=== PATIENT | male | born 1955 | race Caucasian/White ===

== ENCOUNTER 2020-06-13 14:50 | Inpatient (IN) | payer MEDICAID, SELFPAY ==
[2020-06-13] VITALS (8 sets, daily range): BP systolic 120–161; BP diastolic 71–94; PULSE 53–90; RESP 16–20; TEMP 36.4–36.8; O2SAT 97–100; BMI 17.4
--- NOTE | 2020-06-13 15:54 | XR_ITS ---
WS: [id number] XR chest 1V portable [id number] REASON FOR EXAM: renal failure FINDINGS: Mild tortuosity of the thoracic aorta without aneurysmal dilatation. Normal heart size. Calcified granulomatous changes bilaterally. No active pulmonary parenchymal or pleural disease noted . Mild S-shaped thoracic scoliosis with mild changes of degenerative spondylosis in the mid and lower t horacic spine. XR/XR chest 1V portable [id number] IMPRESSION: No acute chest abnormality.
[2020-06-13 16:11] LABS: Basophils % 0.7 %; Eosinophils # 0.1 10^3/uL (0.0-0.8); Eosinophils % 1.5 %; Hematocrit 32.9 % (42.0-52.0); Hemoglobin 10.3 g/dL (11.7-16.6); Lymphocytes # 0.9 10^3/uL (0.8-4.8); Lymphocytes % 16.5 %; Mean Corpuscular HGB Conc 31.3 g/dL (30.0-36.0); Mean Corpuscular Hemoglobin 28.4 pg (28.0-34.0); Mean Corpuscular Volume 90.6 fL (80-94); Mean Platelet Volume 9.5 fL (7.4-10.4); Monocytes # 0.5 10^3/uL (0.2-0.9); Monocytes % 9.3 %; Neutrophils # 3.87 10^3/uL (1.8-7.7); Neutrophils % 71.6 %; Nucleated Red Blood Cells % 0 %; Platelet Count 242 10^3/cmm (130-400); Red Blood Count 3.63 10^6/uL (4.1-5.3); Red Cell Distribution Width 13.7 % (12.1-15.1); White Blood Count 5.4 10^3/uL (4.0-10.0)
--- NOTE | 2020-06-13 16:13 | W.ED.MALEGU ---
HPI - Male Genitourinary General: Chief complaint: Urogenital-Male Stated complaint: obstructive prostatic hypertrophy related issues Source: patient Mode of arrival: ambulatory Limitations: no limitations History of Present Illness: HPI Narrative: Patient is a 65-year-old male who presents to the emergency department after his primary care provider advised him to. He apparently has had a longstanding history of BPH but the patient has refused prostatectomy to have been advised and recommended by the urologist. He has also refused any medical management of the BPH. The patient now has to self catheterize because of the obstructive uropathy. He has hydronephrosis and has been having worsening renal function. A couple of days ago labs done showed his GFR of 11 and creatinine above 5. His primary care provider then advised that he comes for an emergent evaluation in the ED. Patient states that he has intermittent chest pain and shortness of breath. No vomiting, no diaphoresis, no fever. He has extensive social issues and lives alone, his house has no electricity, no running water and he has no telephone. He is having to self catheterize but because he cannot afford the catheter he is extending the time between catheterizations and does it about once a day. He has dribbling, difficulty initiating urine and incomplete bladder emptying. Associated symptoms: Deny dysuria, nausea or vomiting Review of Systems General: Reports: 10 or more systems reviewed and unremarkable except in HPI and below Const: Denies: fever(s), chills or body aches Eyes: Denies: change in vision or blurry vision ENMT: Denies: throat pain, enlarged tonsils, odynophagia, hoarseness, mouth pain or swelling of lips/tongue Card: Reports: chest pain; Denies: palpitations, irregular heart rhythm, edema or swelling of feet/ankles Resp: Denies: dyspnea, productive cough or non-productive cough GI: Denies: abdominal pain, nausea or vomiting : Reports: difficulty urinating, urinary hesitancy, urinary dribbling, difficulty starting urination and change in urine stream; Denies: flank pain, dysuria, urinary frequency or urinary urgency Musc: Denies: neck pain, back pain or extremity swelling Skin/Breast: Denies: rash, pruritus or erythema Neuro: Denies: headache(s), numbness in extremities or weakness in extremities Endo: Denies: polyuria, polydipsia or tired all the time PFSH ED PFSH: Medical History (Updated 06/13/20 @ 23:35 by Ignacia Santillan MD) BPH (benign prostatic hyperplasia) (~2000) long standing, declines consideration for alpha blockers or surgery, does self cath when has supplies CKD (chronic kidney disease) stage 4, GFR 15-29 ml/min 2020 GFR 19 History of pneumonia younger years, recurrent, none in years Social isolation lives off grid, 28 years, on own since around 16, no running water, no electricity, no phone, has a car and a dog Urolithiasis History of bladder and right renal stones Surgical History (Updated 06/13/20 @ 22:00 by Ignacia Santillan MD) History of lithotripsy (~01/2015) large bladder stone, [facility] Status post tendon repair (~1996) both hands Family History (Updated 06/13/20 @ 22:30 by Ignacia Santillan MD) Father Alcoholism Social History (Updated 06/13/20 @ 23:33 by Ignacia Santillan MD) Smoking and tobacco status: never smoked Second hand smoke exposure: Yes Alcohol intake: never Substance/Drug Use: former Date of last use: remote THC Lives independently: Yes Household members: other Details: dog Housing: Other Details: no running water, electricity, phone, lives off grid 28+ years Financial difficulty paying for basics: Hard Physical Exam Const: COMMON NORMALS: no acute distress, average body habitus, patient oriented x3, no limitations, healthy appearing, alert and well nourished HENMT: COMMON NORMALS: normocephalic, atraumatic and moist oral mucous membranes HEAD & SCALP: normocephalic and atraumatic Eye: COMMON NORMALS: Equal, round and reactive pupils present, EOMs intact bilaterally, conjunctivae normal and no scleral icterus CONJUNCTIVA: Yes conjunctivae normal PUPIL: Yes Equal, round and reactive pupils present Neck/C-Spine: COMMON NORMALS: no meningeal signs and no JVD Resp: COMMON NORMALS: normal respiratory effort, No retractions, No use of accessory muscles, clear to auscultation bilaterally and percussion normal AUSCULTATION: clear to auscultation bilaterally PERCUSSION: percussion normal Cardio: COMMON NORMALS: no JVD, regular rate, regular rhythm, S1 normal heart sound present, S2 normal heart sound present, No gallops present (Cardio), No clicks present (Cardio), No murmurs present (Cardio), No rub (Cardio) and Peripheral pulses 2+ throughout RATE: regular rate RHYTHM: regular rhythm HEART SOUNDS: S1 normal heart sound present and S2 normal heart sound present PERIPHERAL PULSES: Peripheral pulses 2+ throughout GI: COMMON NORMALS: Normal to inspection, nondistended, normoactive bowel sounds present, Soft to palpation, non-tender, No hepatosplenomegaly present, no masses and no bruits PALPATION: Yes Soft to palpation and Yes No hepatosplenomegaly present Extremity: COMMON NORMALS: normal to inspection, full ROM, capillary refill normal, no calf tenderness and no pedal edema Neuro: COMMON NORMALS: patient oriented x3 SENSORIUM/ORIENTATION: Yes alert MENINGEAL SIGNS: Yes no meningeal signs Skin: COMMON NORMALS: no rashes or lesions noted, no wounds, turgor normal, no jaundice, no petechiae and no mottling GENERAL SKIN EXAM: no rashes or lesions noted and turgor normal Course Consultations: Consultation #1: Discussed the patient with Dr. Guzman, urologist. He will see the patient while he is admitted. Time: 18:22 Consultation #2: Discussed the patient with Dr. George, hospitalist and he kindly accepted the patient to his service. Time: 18:33 Vital Signs: Vital signs: Vital Signs Temperature 98.2 F 06/13/20 15:01 Pulse Rate 71 06/13/20 23:22 Respiratory Rate 16 06/13/20 23:22 Blood Pressure 124/71 06/13/20 23:22 Pulse Oximetry 97 06/13/20 23:22 MDM - Male MDM Narrative: Medical decision making narrative: This unfortunate 65-year-old male who has had longstanding prostatic issues. He has benign prostatic hypertrophy and unfortunately has refused medical management or surgical management of his symptoms. He has baptism believes that I am conflict with his healthcare management. He has declined prostatectomy as he believes it to make him impotent and has also declined medical therapy as he believes it will make him less of a man. He has obstructive uropathy which has progressed to renal failure and he has a creatinine of 5 today. BUN of 90. Thankfully his potassium is normal. Urine shows he has a UTI. I had discussed with the urologist and he will evaluate him in the hospital. A Cain catheter was inserted to relieve the obstructive uropathy and hopefully that will improve his renal function rapidly. I spent an extensive amount of time discussing the pathophysiology of how BPH has led to his renal failure and how it is important that something be done to relieve his symptoms otherwise his outcome is going to be pretty poor. He will be admitted to the hospital for evaluation and management. Medical Records: Attestation: I reviewed the patient's medical records. Lab Data: Attestation: I reviewed the patient's lab results. Labs: Lab Results 06/13/20 06/13/20 06/13/20 Range/Units 16:00 16:00 16:00 WBC 5.4 (4.0-10.0) 10^3/ uL RBC 3.63 L (4.1-5.3) 10^6/u L Hgb 10.3 L (11.7-16.6) g/dL Hct 32.9 L (42.0-52.0) % MCV 90.6 (80-94) fL MCH 28.4 (28.0-34.0) pg MCHC 31.3 (30.0-36.0) g/dL RDW 13.7 (12.1-15.1) % Plt Count 242 (130-400) 10^3/c mm MPV 9.5 (7.4-10.4) fL Neut % (Auto) 71.6 % Lymph % (Auto) 16.5 % [place] % (Auto) 9.3 % Eos % (Auto) 1.5 % Baso % (Auto) 0.7 % Neut # (Auto) 3.87 (1.8-7.7) 10^3/u L Lymph # (Auto) 0.9 (0.8-4.8) 10^3/u L [place] # (Auto) 0.5 (0.2-0.9) 10^3/u L Eos # (Auto) 0.1 (0.0-0.8) 10^3/u L Baso # (Auto) 0.0 (0.0-0.1) 10^3/u L Nucleated RBC % (a uto) 0 % Nucleated RBCs # 0.0 /100WBC Sodium 138 (136-145) mmol/L Potassium 3.7 (3.5-5.1) mmol/L Chloride 104 (98-107) mmol/L Carbon Dioxide 19 L (22-29) mmol/L Anion Gap 18.7 (5-19) BUN 90 H* (8-23) mg/dL Creatinine 5.1 H (0.7-1.2) mg/dL GFR Calculation 11.5 L (90-130) mL/min Glucose 80 (65-115) mg/dL Calculated Osmolal ity 313 H (285-295) mOsm/k g Lactate 0.7 (0.5-2.2) mmol/L Calcium 7.3 L (8.5-10.5) mg/dL Magnesium 2.1 (1.7-2.3) mg/dL Total Bilirubin 0.2 (0.15-1.2) mg/dL AST 14 (0-40) U/L ALT 24 (0-41) U/L Alkaline Phosphata se 60 (40-130) IU/L Troponin T Baselin e (0-15) ng/L Troponin T 120 Min chuck (0-15) ng/L Delta Troponin T (0-10) ABS# C-Reactive Protein 2.7 (0.0-4.9) mg/L NT-Pro-B Natriuret Pep 410 H (0-125) pg/mL Total Protein 7.9 (6.6-8.7) g/dL Albumin 4.2 (3.5-5.2) g/dL Globulin 3.7 (1.3-4.6) g/dL Urine Color (Yellow) Urine Appearance (CLEAR) Urine pH (5-7) Ur Specific Gravit y (1.005-1.030) Urine Protein (Negative) Urine Glucose (UA) (Normal) Urine Ketones (Negative) Urine Blood (Negative) Urine Nitrate (Negative) Urine Bilirubin (Negative) Urine Urobilinogen (Negative) mg/dL Ur Leukocyte Sheridan ase (Negative) Urine RBC (0-2) /hpf Urine WBC (0-5) /hpf Ur Squamous Epith Cells (0-5) /hpf Amorphous Sediment Urine Bacteria (NONE) /hpf Hyaline Casts /lpf 06/13/20 06/13/20 06/13/20 Range/Units 16:00 16:45 18:20 WBC (4.0-10.0) 10^3/ uL RBC (4.1-5.3) 10^6/u L Hgb (11.7-16.6) g/dL Hct (42.0-52.0) % MCV (80-94) fL MCH (28.0-34.0) pg MCHC (30.0-36.0) g/dL RDW (12.1-15.1) % Plt Count (130-400) 10^3/c mm MPV (7.4-10.4) fL Neut % (Auto) % Lymph % (Auto) % [place] % (Auto) % Eos % (Auto) % Baso % (Auto) % Neut # (Auto) (1.8-7.7) 10^3/u L Lymph # (Auto) (0.8-4.8) 10^3/u L [place] # (Auto) (0.2-0.9) 10^3/u L Eos # (Auto) (0.0-0.8) 10^3/u L Baso # (Auto) (0.0-0.1) 10^3/u L Nucleated RBC % (a uto) % Nucleated RBCs # /100WBC Sodium (136-145) mmol/L Potassium (3.5-5.1) mmol/L Chloride (98-107) mmol/L Carbon Dioxide (22-29) mmol/L Anion Gap (5-19) BUN (8-23) mg/dL Creatinine (0.7-1.2) mg/dL GFR Calculation (90-130) mL/min Glucose (65-115) mg/dL Calculated Osmolal ity (285-295) mOsm/k g Lactate (0.5-2.2) mmol/L Calcium (8.5-10.5) mg/dL Magnesium (1.7-2.3) mg/dL Total Bilirubin (0.15-1.2) mg/dL AST (0-40) U/L ALT (0-41) U/L Alkaline Phosphata se (40-130) IU/L Troponin T Baselin e 23 H (0-15) ng/L Troponin T 120 Min chuck 21.74 H (0-15) ng/L Delta Troponin T -1.26 L (0-10) ABS# C-Reactive Protein (0.0-4.9) mg/L NT-Pro-B Natriuret Pep (0-125) pg/mL Total Protein (6.6-8.7) g/dL Albumin (3.5-5.2) g/dL Globulin (1.3-4.6) g/dL Urine Color Yellow (Yellow) Urine Appearance Hazy A (CLEAR) Urine pH 5 (5-7) Ur Specific Gravit y 1.010 (1.005-1.030) Urine Protein Neg (Negative) Urine Glucose (UA) Norm (Normal) Urine Ketones Negative (Negative) Urine Blood 2+ H (Negative) Urine Nitrate Negative (Negative) Urine Bilirubin Neg (Negative) Urine Urobilinogen Norm (Negative) mg/dL Ur Leukocyte Sheridan ase 2+ H (Negative) Urine RBC 5-10 H (0-2) /hpf Urine WBC >100 H (0-5) /hpf Ur Squamous Epith Cells 0-4 H (0-5) /hpf Amorphous Sediment Not Reportable Urine Bacteria 1+ H (NONE) /hpf Hyaline Casts 5-10 H /lpf Imaging Data: CT Abd/Pel: Attestation: I personally reviewed and interpreted this imaging study as follows: Radiologist's impression: [place] [address] CT Scan Report Signed Patient: Stephen Cole #: [id number] : 7Acct#:[id number] Age/Sex: 65 / MADM Date: 06/13/20 [facility] Attending Dr: Ordering Provider/Ordering MD: Shad Pelletier MD, [facility] [place] Date of Service: 06/13/20 Procedure(s): CT abdomen pelvis wo con [id number] Accession Number(s): [id number] Report Number: [id number] PROCEDURE INFORMATION: Exam: CT Abdomen And Pelvis Without Contrast Exam date and time: 06/13/2020 5:09 PM Age: 65 years old Clinical indication: Abdominal pain; Flank; Right; Prior surgery; Surgery type: Bladder stone; Additional info: Obstructive uropathy and renal failure TECHNIQUE: Imaging protocol: Computed tomography of the abdomen and pelvis without contrast. Radiation optimization: All CT scans at this facility use at least one of these dose optimization techniques: automated exposure control; mA and/or kV adjustment per patient size (includes targeted exams where dose is matched to clinical indication); or iterative reconstruction. COMPARISON: No relevant prior studies available. RADIATION DOSE METRICS: Total DLP (mGy-cm): 540.7 FINDINGS: Liver: Small simple cyst in the subcapsular area of the right lateral hepatic lobe. Simple cyst in the superior left hepatic dome. Gallbladder and bile ducts: Normal. No calcified stones. No ductal dilation. Pancreas: Normal. No ductal dilation. Spleen: Normal. No splenomegaly. Adrenal glands: Normal. No mass. Kidneys and ureters: Renal parenchyma severely atrophic bilaterally. Numerous calcified nonobstructing right-sided kidney stones. There is very severe chronic appearing diffuse bilateral hydroureteronephrosis. Stomach and bowel: Unremarkable. No obstruction. No mucosal thickening. Appendix: No evidence of appendicitis. Intraperitoneal space: Unremarkable. No free air. No significant fluid collection. Vasculature: Diffuse arterial wall atherosclerotic calcifications. No abdominal aortic aneurysm. Lymph nodes: Unremarkable. No enlarged lymph nodes. Urinary bladder: Diffusely trabeculated, thickened bladder wall. Large right posterior bladder wall diverticulum with bladder calculus. Reproductive: Diffuse prostate gland hypertrophy. Bones/joints: Severe disc disease at L4-L5 and L5-S1. No aggressive bone lesions. Lumbar spinal alignment is anatomic. No pathologic fractures. Soft tissues: Unremarkable. CT/CT abdomen pelvis wo con [id number] IMPRESSION: 1. Chronic bladder outlet obstruction changes are noted with a diffusely trabeculated bladder wall and severe bilateral hydroureteronephrosis. 2. Prostate gland hypertrophy. 3. Right-sided renal stones and small bladder stone within bladder diverticula. Radiation Dose CTDIVOL = (mGy): DLP = 540.7 (mGy-cm) Dictated By:Satish Post Signed By:Lakhwinder Post Date/Time:06/13/201738 DD/ 37 CXR: Attestation: I personally reviewed and interpreted this imaging study as follows: Radiologist's impression: [email or web address] [address] XRay Report Signed Patient: Kristopher ColeCarley #: [id number] : 7[facility]#:[id number] Age/Sex: 65 / MADM Date: 06/13/20 Loc: ERRoom/Bed: Attending Dr: Ordering Provider/Ordering MD: Shad Pelletier MD, [facility] [place] Date of Service: 06/13/20 Procedure(s): XR chest 1V portable [id number] Accession Number(s): [id number] Report Number: [id number] WS: [id number] XR chest 1V portable [id number] REASON FOR EXAM: renal failure FINDINGS: Mild tortuosity of the thoracic aorta without aneurysmal dilatation. Normal heart size. Calcified granulomatous changes bilaterally. No active pulmonary parenchymal or pleural disease noted. Mild S-shaped thoracic scoliosis with mild changes of degenerative spondylosis in the mid and lower thoracic spine. XR/XR chest 1V portable [id number] IMPRESSION: No acute chest abnormality. Dictated By:Kahlil Magaña Jr, MD Signed By:Kahlil Magaña Jr MDSigned Date/Time:06/13/201638 DD/ 37 EKG Data: EKG 1: Attestation: I personally reviewed and interpreted this EKG as follows: EKG Data: 06/13/20 EKG interpretation time: 16:00 Prior EKG tracings: not available for review Interpretation: Sinus bradycardia. Heart rate 55 bpm. Normal axis. No ST changes. EKG 2: Attestation: I personally reviewed and interpreted this EKG as follows: EKG Data: 06/13/20 EKG interpretation time: 18:04 Prior EKG tracings: available for review Interpretation: Sinus bradycardia. Heart rate [address] changes. No significant changes from earlier. Discharge Plan Discharge Patient Disposition: Admitted As Inpatient Admit Provider: Donta Minaya Clinical Impression: Acute renal failure, Bilateral hydronephrosis, Bladder outlet obstruction, UTI (urinary tract infection), Social isolation, BPH (benign prostatic hyperplasia) Condition: Stable Coding Level of Care Code ED Organ Tuner Electronic for Chg Fwd Exam Comprehensive
[2020-06-13 16:22] LABS: Lactate (Lactic Acid level) 0.7 mmol/L (0.5-2.2)
[2020-06-13 16:26] LABS: Troponin(5th) Baseline 23 ng/L (0-15)
[2020-06-13 16:33] LABS: Alanine Aminotransferase 24 U/L (0-41); Albumin Level 4.2 g/dL (3.5-5.2); Alkaline Phosphatase 60 IU/L (40-130); Anion Gap 18.7 (5-19); Aspartate Amino Transferase 14 U/L (0-40); C Reactive Protein 2.7 mg/L (0.0-4.9); Calcium 7.3 mg/dL (8.5-10.5); Carbon Dioxide 19 mmol/L (22-29); Chloride 104 mmol/L (98-107); Globulin 3.7 g/dL (1.3-4.6); Glomerular Filtration Rate 11.5 mL/min (90-130); Glucose 80 mg/dL (65-115); Magnesium 2.1 mg/dL (1.7-2.3); NT Pro B Type Natriuretic Pept 410 pg/mL (0-125); Osmolality Calculated 313 mOsm/kg (285-295); Potassium 3.7 mmol/L (3.5-5.1); Sodium 138 mmol/L (136-145); Total Bilirubin 0.2 mg/dL (0.15-1.2); Total Protein 7.9 g/dL (6.6-8.7)
[2020-06-13 16:42] LABS: Blood Urea Nitrogen 90 mg/dL (8-23)
--- NOTE | 2020-06-13 17:02 | CTR_ITS ---
PROCEDURE INFORMATION: Exam: CT Abdomen And Pelvis Without Contrast Exam date and time: 06/13/2020 5:09 PM Age: 65 years old Clinical indication: Abdominal pain; Flank; Right; Prior surgery; Surgery type: Bladder stone; Additional info: Obstructive uropathy and renal failure TECHNIQUE: Imaging protocol: Computed tomography of the abdomen and pelvis without contrast. Radiation optimization: All CT scans at this facility use at least one of these dose optimization techniques: automated exposure control; mA and/or kV adjustment per patient size (includes targeted exams where dose is matched to clinical indication); or iterative reconstruction. COMPARISON: No relevant prior studies available. RADIATION DOSE METRICS: Total DLP (mGy-cm): 540.7 FINDINGS: Liver: Small simple cyst in the subcapsular area of the right lateral hepatic lobe. Simple cyst in the superior left hepatic dome. Gallbladder and bile ducts: Normal. No calcified stones. No ductal dilation. Pancreas: Normal. No ductal dilation. Spleen: Normal. No splenomegaly. Adrenal glands: Normal. No mass. Kidneys and ureters: Renal parenchyma severely atrophic bilaterally. Numerous calcified nonobstructing right-sided kidney stones. There is very severe chronic appearing diffuse bilateral hydroureteronephrosis. Stomach and bowel: Unremarkable. No obstruction. No mucosal thickening. Appendix: No evidence of appendicitis. Intraperitoneal space: Unremarkable. No free air. No significant fluid collection. Vasculature: Diffuse arterial wall atherosclerotic calcifications. No abdominal aortic aneurysm. Lymph nodes: Unremarkable. No enlarged lymph nodes. Urinary bladder: Diffusely trabeculated, thickened bladder wall. Large right posterior bladder wall diverticulum with bladder calculus. Reproductive: Diffuse prostate gland hypertrophy. Bones/joints: Severe disc disease at L4-L5 and L5-S1. No aggressive bone lesions. Lumbar spinal alignment is anatomic. No pathologic fractures. Soft tissues: Unremarkable. CT/CT abdomen pelvis wo con [id number] IMPRESSION: 1. Chronic bladder outlet obstruction changes are noted with a diffusely trabeculated bladder wall and severe bilateral hydroureteronephrosis. 2. Prostate gland hypertrophy. 3. Right-sided renal stones and small bladder stone within bladder diverticula. Radiation Dose CTDIVOL = (mGy): DLP = 540.7 (mGy-cm)
[2020-06-13 17:10] LABS: Add Urine Microscopic? YES; Bilirubin Urine Neg (Negative); Blood Urine 2+ (Negative); Glucose Urine UA Norm (Normal); Ketones Urine Negative (Negative); Leukocyte Esterase Urine 2+ (Negative); Nitrate Urine Negative (Negative); Protein Urine Neg (Negative); Urine Appearance Hazy (CLEAR); Urine Color Yellow (Yellow); Urobilinogen Urine Norm (Negative); pH Urine 5 (5-7)
[2020-06-13 17:25] LABS: Add Urine Culture? Yes; Bacteria Urine 1+ /hpf; Squamous Epithelial Cell Urine 0-4 /hpf (0-5); WBC Urine >100 /hpf (0-5)
[2020-06-13] MEDS: sodium chloride 0.9% 1,000 ML 999 ML IV (17:28)
--- NOTE | 2020-06-13 17:55 | ECG_ITS ---
[facility] Test Date: 2020-06-13 Pat Name: Kristopher Cole Department: Room: Gender: Male [employer] Work[employer]: : 1955 Requested By: Shad Pelletier I Order Number: [id number] David MD: Ruth Mcleod M.D. Measurements Intervals [place] Rate: 55 P: 82 CA: 169 QRS: 94 QRSD: 126 T: 71 QT: 465 QTc: 447 Interpretive Statements SINUS BRADYCARDIA BORDERLINE RIGHT AXIS DEVIATION [QRS AXIS > 90] MODERATE INTRAVENTRICULAR CONDUCTION DELAY [110+ ms QRS DURATION] Compared to ECG 06/13/2020 16:00:03 Intraventricular conduction delay now present Electronically Signed On 06-14-2020 23:22:37 CDT by Ruth Mcleod M.D. [id number]
[2020-06-13] MEDS: cefTRIAXone 1,000 MG in sodium chloride 0.9% (plus) 50 ML 100 MG IV (18:42)
[2020-06-13 19:18] LABS: Troponin 5 2HR 21.74 ng/L (0-15)
[2020-06-13 19:19] LABS: Troponin 5 2HR Delta -1.26 ABS# (0-10)
--- NOTE | 2020-06-13 21:18 | PM.HP ---
Providers/Chief Complaint Admitting Physician: Jacque Primary Care Provider: Estrella Matos [facility] Chief Complaint: obstructive prostatic hypertrophy related issues History of Present Illness Kristopher Cole is a 65 year old male who presented to the emergency room with chief complaint of kidney failure. He had recent laboratory studies done at [facility]. Results showed creatinine of 5 with a GFR of 11. Mr. Cole [place] off [facility] and has for around 30 years or so. He has no running water, electricity or telephone. He recently bought a vehicle with a stimulus check which allowed him to get to the clinic for lab studies. Last time he had labs was about a year ago and at that time he reports that his kidney function was around 19. I suspect that he is referring to calculated GFR. Staff from the clinic where he had the lab drawn is weak drove out to his house and provided him with results of the studies and instructions to get to the emergency room due to the degree of worsening in his kidney disease. He has a longstanding history of prostatic hypertrophy. It was first diagnosed back in 2000. He has been offered alpha blockers to help but has longstanding and nonnegotiable concerns about alpha edwin ability to influence hormonal balance and masculinity. He has been doing self catheterizations for management for years but has had more more difficulty obtaining supplies. He currently only uses a catheter every few days at most so that he does not run out. He still makes urine but knows that he is not able to empty his bladder. About the minimum he ever gets with self-catheterization is around 300 cc and at times it will be significantly greater. He has been having increasing suprapubic pain as well as right flank pain. He has a history of kidney stones and bladder stones. Back in 2014 he was hospitalized at [facility] in [place] with a 2.5 cm bladder stone that was broken up and removed . He does not know what kind of stone it was. At the time he had significant renal failure with hyperkalemia but with intervention improved though has had some degree of chronic kidney disease since then. He only periodically follows to get blood work done and get supplies for catheterization. When he saw his primary care provider recently, they gave him a prescription for Cipro for urinary tract infection. He has not yet started it. Denies any recent hematuria. Has not had fever. Has not been feeling well but no nausea, vomiting or diarrhea. On arrival here he had some mild hypertension which he reports has been progressively worsening. Has not ever been on any medications for this. Creatinine was found to be 5.1 with BUN of 90. Potassium was 3.7. He does describe intermittent episodes of chest discomfort. No shortness of breath. He maintains activity by taking care of his ADLs in an off grade lifestyle. He does have a dog who is his constant assistant to the director. Hwang catheter was placed in the emergency room and more than a liter of urine output was noted. Urinalysis demonstrated evidence of infection. He was given some Rocephin, IV fluids and is being admitted for further evaluation and treatment. He is utilizing something called the [employer] program through his primary care provider's office to assist him with getting medications and supplies for catheterization but reports that the cost is still more than he can routinely afford. He is 100% against any surgical options for his prostatic hypertrophy. He has tried saw palmetto but did not tolerate it. He reports that he got some nettle root for his prostate but has not utilized it yet. He is willing to consider natural alternatives. He does not want any form of medication that might alter hormones. He specifically does not want any alpha blockers. He has well thought out viewpoints that differ from mainstream but has also done some research on the topics. He lives his life by relying on God's provisions and the land. He realizes that he does need some intervention for his renal function. He appropriately prefers to make well-informed decisions before trying anything new. I did talk to him about the possibility of iron replacement which he was okay with and I also discussed the possibility of antihypertensives. His long as alpha blockers are not chosen and medications or not hormonal based he is okay with this. With adequate information provided he will consider care plans offered thoughtfully to determine if they fall within his lifestyle preferences. Review of Systems Const: Denies: fever(s), chills or change in appetite Eyes: Denies: change in vision ENMT: Denies: throat pain or nasal congestion Card: Reports: chest pain; Denies: palpitations, edema, dyspnea on exertion or orthopnea Resp: Denies: dyspnea, productive cough or non-productive cough GI: Denies: abdominal pain, nausea, vomiting, diarrhea or constipation : Reports: flank pain, difficulty urinating, difficulty starting urination and change in urine stream (Progressively worsening ability to empty bladder); Denies: hematuria Musc: Reports: other (No acute musculoskeletal complaints) Skin/Breast: Denies: pruritus or sores Neuro: Denies: other (Focal neurological complaints) Psych: Reports: other (No hallucinations) [place]/Lymph: Denies: easy bruising or easy bleeding Medications/Allergies Home Medications Medication Instructions Recorded Confirmed Last Taken Type ciprofloxacin HCl [Cipro] 500 mg PO Q12H 06/13/20 06/13/20 Unknown History Allergies Allergy/AdvReac Type Severity Reaction Status Date / Time Latex, Natural Rubber Allergy Intermediate ALGY-Rash Verified 06/13/20 15:37 codeine Allergy ALGY-Rash Verified 06/13/20 15:37 PFSH Acute PFSH: Medical History (Updated 06/14/20 @ 08:28 by Ignacia Santillan MD) BPH (benign prostatic hyperplasia) (~2000) long standing, declines consideration for alpha blockers or surgery, does self cath when has supplies CKD (chronic kidney disease) stage 4, GFR 15-29 ml/min 2020 GFR 19 History of pneumonia younger years, recurrent, none in years Social isolation lives [place] grid, 28 years, on own since around 16, no running water, no electricity, no phone, has a car and a dog Urolithiasis History of bladder and right renal stones Surgical History (Updated 06/13/20 @ 22:00 by Ignacia Santillan MD) History of lithotripsy (~01/2015) large bladder stone, [facility] Status post tendon repair (~1996) both hands Family History (Updated 06/13/20 @ 22:30 by Ignacia Santillan MD) Father Alcoholism Social History (Updated 06/13/20 @ 23:33 by Ignacia Santillan MD) Smoking and tobacco status: never smoked Second hand smoke exposure: Yes Alcohol intake: never Substance/Drug Use: former Date of last use: remote THC Lives independently: Yes Household members: other Details: dog Housing: Other Details: no running water, electricity, phone, lives off grid 28+ years Financial difficulty paying for basics: Hard Vitals/I&O/Wt Last Vital Signs Temp 98.2 F 06/13/20 15:01 Pulse 59 L 06/13/20 17:50 Resp 18 06/13/20 18:00 BP 149/93 06/13/20 17:50 Pulse Ox 100 06/13/20 17:50 06/13/20 06/13/20 06/13/20 06:59 14:59 22:59 Intake Total 1000 / 1000 Balance 1000 / 1000 Weight last 48 hrs Weight 55.338 kg Physical Exam Const: OTHER: Alert, oriented x3, cooperative, thin build HENMT: OTHER: Normocephalic atraumatic, moist mucus membranes, posterior dental fillings Eye: OTHER: Pupils equally round and reactive to light, EOMI Neck/C-Spine: OTHER: Supple, no thyromegaly or lymphadenopathy Resp: OTHER: Clear to auscultation bilaterally, no rales, rhonchi or wheezes noted, no accessory muscle use noted Cardio: OTHER: Regular rate and rhythm, no murmurs gallops or rubs. Pulses equal throughout GI: OTHER: Abdomen soft, mild tenderness suprapubic area and right flank, no rebound or guarding, + bowel sounds : OTHER: normal circumsized phallus, hwang noted, ~1100 ml clear yellow urine Extremity: OTHER: No cyanosis, clubbing or edema, no acute synovitis Neuro: OTHER: Face symmetric, speech clear, moves all extremities Psych: OTHER: Normal affect, enjoys talking but not pressured speech, thought process appropriate despite differing views from medical community certain things, makes good eye contact and acknowledges my need to attend to 2 emergencies during my evaluation well, well kempt, good recall of long ago events, able to get detailed history and demonstrates good insight, even able to recall labs from last year. Skin: OTHER: Skin without any acute lesions or rashes noted Data : 06/14/20 06:01 06/14/20 06:01 Other Labs: Laboratory Results WBC 5.4 10^3/uL (4.0-10.0) 06/13/20 16:00 RBC 3.63 10^6/uL (4.1-5.3) L 06/13/20 16:00 Hgb 10.3 g/dL (11.7-16.6) L 06/13/20 16:00 Hct 32.9 % (42.0-52.0) L 06/13/20 16:00 MCV 90.6 fL (80-94) 06/13/20 16:00 MCH 28.4 pg (28.0-34.0) 06/13/20 16:00 MCHC 31.3 g/dL (30.0-36.0) 06/13/20 16:00 RDW 13.7 % (12.1-15.1) 06/13/20 16:00 Plt Count 242 10^3/cmm (130-400) 06/13/20 16:00 MPV 9.5 fL (7.4-10.4) 06/13/20 16:00 Neut % (Auto) 71.6 % 06/13/20 16:00 Lymph % (Auto) 16.5 % 06/13/20 16:00 [place] % (Auto) 9.3 % 06/13/20 16:00 Eos % (Auto) 1.5 % 06/13/20 16:00 Baso % (Auto) 0.7 % 06/13/20 16:00 Neut # (Auto) 3.87 10^3/uL (1.8-7.7) 06/13/20 16:00 Lymph # (Auto) 0.9 10^3/uL (0.8-4.8) 06/13/20 16:00 [place] # (Auto) 0.5 10^3/uL (0.2-0.9) 06/13/20 16:00 Eos # (Auto) 0.1 10^3/uL (0.0-0.8) 06/13/20 16:00 Baso # (Auto) 0.0 10^3/uL (0.0-0.1) 06/13/20 16:00 Nucleated RBC % (auto) 0 % 06/13/20 16:00 Nucleated RBCs # 0.0 /100WBC 06/13/20 16:00 Sodium 138 mmol/L (136-145) 06/13/20 16:00 Potassium 3.7 mmol/L (3.5-5.1) 06/13/20 16:00 Chloride 104 mmol/L (98-107) 06/13/20 16:00 Carbon Dioxide 19 mmol/L (22-29) L 06/13/20 16:00 Anion Gap 18.7 (5-19) 06/13/20 16:00 BUN 90 mg/dL (8-23) H* 06/13/20 16:00 Creatinine 5.1 mg/dL (0.7-1.2) H 03/18/21 16:00 GFR Calculation 11.5 mL/min (90-130) L 06/13/20 16:00 Glucose 80 mg/dL (65-115) 06/13/20 16:00 Calculated Osmolality 313 mOsm/kg (285-295) H 06/13/20 16:00 Lactate 0.7 mmol/L (0.5-2.2) 06/13/20 16:00 Calcium 7.3 mg/dL (8.5-10.5) L 06/13/20 16:00 Magnesium 2.1 mg/dL (1.7-2.3) 06/13/20 16:00 Total Bilirubin 0.2 mg/dL (0.15-1.2) 06/13/20 16:00 AST 14 U/L (0-40) 06/13/20 16:00 ALT 24 U/L (0-41) 06/13/20 16:00 Alkaline Phosphatase 60 IU/L (40-130) 06/13/20 16:00 Troponin T Baseline 23 ng/L (0-15) H 06/13/20 16:00 Troponin T 120 Minute 21.74 ng/L (0-15) H 06/13/20 18:20 Delta Troponin T -1.26 ABS# (0-10) L 06/13/20 18:20 C-Reactive Protein 2.7 mg/L (0.0-4.9) 06/13/20 16:00 NT-Pro-B Natriuret Pep 410 pg/mL (0-125) H 06/13/20 16:00 Total Protein 7.9 g/dL (6.6-8.7) 06/13/20 16:00 Albumin 4.2 g/dL (3.5-5.2) 06/13/20 16:00 Globulin 3.7 g/dL (1.3-4.6) 06/13/20 16:00 Urine Color Yellow (Yellow) 06/13/20 16:45 Urine Appearance Hazy (CLEAR) A 06/13/20 16:45 Urine pH 5 (5-7) 06/13/20 16:45 Ur Specific [place] 1.010 (1.005-1.030) 06/13/20 16:45 Urine Protein Neg (Negative) 06/13/20 16:45 Urine Glucose (UA) Norm (Normal) 06/13/20 16:45 Urine Ketones Negative (Negative) 06/13/20 16:45 Urine Blood 2+ (Negative) H 06/13/20 16:45 Urine Nitrate Negative (Negative) 06/13/20 16:45 Urine Bilirubin Neg (Negative) 06/13/20 16:45 Urine Urobilinogen Norm mg/dL (Negative) 06/13/20 16:45 Ur Leukocyte Esterase 2+ (Negative) H 06/13/20 16:45 Urine RBC 5-10 /hpf (0-2) H 06/13/20 16:45 Urine WBC >100 /hpf (0-5) H 06/13/20 16:45 Ur Squamous Epith Cells 0-4 /hpf (0-5) H 06/13/20 16:45 Amorphous Sediment Not Reportable 06/13/20 16:45 Urine Bacteria 1+ /hpf (NONE) H 06/13/20 16:45 Hyaline Casts 5-10 /lpf H 06/13/20 16:45 Impressions Chest X-Ray 06/13/20 15:54 IMPRESSION: No acute chest abnormality. Abdomen/Pelvis CT 06/13/20 17:02 IMPRESSION: 1. Chronic bladder outlet obstruction changes are noted with a diffusely trabeculated bladder wall and severe bilateral hydroureteronephrosis. 2. Prostate gland hypertrophy. 3. Right-sided renal stones and small bladder stone within bladder diverticula. Radiation Dose CTDIVOL = (mGy): DLP = 540.7 (mGy-cm) A&P Assessment and plan (1) Acute renal failure: On top of chronic kidney disease stage IV by his description. Postobstructive process made worse by irregular utilization of self-catheterization. Potassium is normal suggesting that this is probably been a slow decline in renal function. Patient still able to urinate but only about 300 mL maximum at a time, reports most post void residual 300 to 400 mL though today was greater than 1000. He has been having right flank pain and was concerned that he had an obstructive stone either in his kidney or bladder. Status: Acute Qualifiers: Acute renal failure type: with other specified pathological lesion Qualified Code(s): N17.8 - Other acute kidney failure (2) UTI (urinary tract infection): Present on admission Status: Acute Qualifiers: Hematuria presence: without hematuria Urinary tract infection type: acute cystitis Qualified Code(s): N30.00 - Acute cystitis without hematuria (3) Bladder outlet obstruction: Chronically related to BPH Status: Acute (4) Bilateral hydronephrosis: No prior comparative films but he indicates what I suspect is having some hydronephrosis in the past Status: Acute (5) Urolithiasis: Right renal and bladder, currently nonobstructive Status: Chronic Qualifiers: Urinary calculus location: other lower urinary tract location Qualified Code(s): N21.8 - Other lower urinary tract calculus (6) BPH (benign prostatic hyperplasia): long standing, declines consideration for alpha blockers or surgery, does self cath when has supplies Status: Chronic Qualifiers: Lower urinary tract symptom detail: urinary obstruction Lower urinary tract symptom presence: symptoms present Qualified Code(s): N40.1 - Benign prostatic hyperplasia with lower urinary tract symptoms; N13.8 - Other obstructive and reflux uropathy (7) Anemia: Suspect anemia of chronic kidney disease, no reported blood loss Status: Acute Qualifiers: Anemia type: unspecified type Qualified Code(s): D64.9 - Anemia, unspecified (8) Hypertension: I suspect that this is been developing slowly over time due to progressive renal dysfunction, patient has noticed it himself Status: Acute Qualifiers: Hypertension type: secondary to other renal disorders Qualified Code(s): I15.1 - Hypertension secondary to other renal disorders; N28.89 - Other specified disorders of kidney and ureter (9) Financial difficulties: Affording medical supplies routinely Status: Chronic (10) Social isolation: lives off [facility], 28 years, on own since around 16, no running water, no electricity, no phone, has a car and a dog Status: Chronic Additional A&P Information Impatient admission Continue Hwang catheter IV fluids at a lower rate Monitor renal function as well as I's and O's closely Watch for postobstructive diuresis Serial cardiac enzymes and EKGs secondary to complaints of some chest pain Check iron level, start iron replacement which he has agreed to Start amlodipine for blood pressure control, discussed concept of antihypertensives with patient and as long as he is not receiving an alpha-edwin he is okay presently ED doctor discussed with Dr. Guzman who agreed to see the patient in consultation. While options are generally going to be limited to self-catheterization based on patient's healthcare preferences, having access to a provider who can educate him and work within the restrictions he has outlined will benefit him. He is aware of progressive kidney problems secondary to prostate issues and aware that progressive kidney problems could lead to hemodialysis need or other healthcare that may not be in line with his desires. He is well versed in his life approach, willing to listen/discuss recommendations as well as some alternatives and also understands that not intervening can lead to significant consequences up to and including the possibility of . Marian, follow-up pending cultures from urine He does have a prescription for Cipro upon discharge already filled will need to be adjusted for renal dysfunction as it was prescribed at 500 twice daily, depending on where his renal function recovers to may be able to do 500 daily. SCDs for DVT prophylaxis donor services coordinator/Case management to evaluate and see if there is any assistance we can arrange for him particularly around getting self-catheterization supplies plus or minus insurance options. Anticipate follow-up with his primary care provider Estrella Mondragons at [facility], possibly with Dr. Guzman and possibly with referral to nephrology Supportive care otherwise Plans were discussed with patient and he was given an opportunity to ask questions CODE STATUS was discussed with patient he does wish to be full code except if there was no chance of meaningful survival he would not want continued efforts. Attestations Medical Necessity Statement*: Anticipated stay greater than 2 midnights in a gentleman with suboptimally managed bladder outlet obstruction from prostatic hypertrophy who has developed progressive renal failure. While his electrolytes are currently acceptable he has significant azotemia and currently calculated GFR consistent with stage V kidney disease. In addition he has urine infection related to obstructive process. He is receiving IV fluids, serial laboratory studies, close monitoring of urine output as well as IV antibiotics. Other issues and plans as noted. Coding Level of Care Code Acute Academic Success Coordinator for [employer]oco Fwd Diagnoses Acute renal failure N17.8 Acute renal failure type: with other specified pathological lesion UTI (urinary tract infection) N30.00 Hematuria presence: without hematuria Urinary tract infection type: acute cystitis Bladder outlet obstruction N32.0 Bilateral hydronephrosis N13.30 Urolithiasis N21.8 Urinary calculus location: other lower urinary tract location BPH (benign prostatic hyperplasia) N40.1; N13.8 Lower urinary tract symptom detail: urinary obstruction Lower urinary tract symptom presence: symptoms present Anemia D64.9 Anemia type: unspecified type Hypertension I15.1; N28.89 Hypertension type: secondary to other renal disorders Financial difficulties Z59.8 Social isolation Z60.4
--- NOTE | 2020-06-13 21:55 | ECG_ITS ---
[facility] Test Date: 2020-06-13 Pat Name: Kristopher Cole Department: Room: Gender: Male Campaign Advisor: : [id number] Requested By: Shad Pelletier I Order Number: [id number] David MD: Ruth Mcleod M.D. Measurements Intervals [place] Rate: 55 P: 66 IA: 149 QRS: 90 QRSD: 103 T: 76 QT: 430 QTc: 413 Interpretive Statements SINUS BRADYCARDIA Diffuse early repolarization changes No previous ECG available for comparison Electronically Signed On 06-14-2020 23:22:21 CDT by Ruth Mcleod M.D. [id number]
[2020-06-13 22:20] LABS: Troponin 5 6HR 21.23 ng/L (0-15)
[2020-06-13 22:21] LABS: Troponin 5 6HR Delta -1.77 ng/L (0-12)
[2020-06-14 01:28] VITALS: BP 132/68; PULSE 54; RESP 18; TEMP 37; O2SAT 100
[2020-06-14] MEDS: sodium chloride 0.9% 1,000 ML 75 ML IV ×2 (03:47→17:09)
[2020-06-14 05:24] VITALS: BP 144/76; PULSE 56; RESP 18; TEMP 36.6; O2SAT 97
[2020-06-14 06:37] LABS: Basophils % 0.5 %; Eosinophils # 0.1 10^3/uL (0.0-0.8); Eosinophils % 2.5 %; Hematocrit 29.2 % (42.0-52.0); Lymphocytes # 0.8 10^3/uL (0.8-4.8); Lymphocytes % 13.9 %; Mean Corpuscular HGB Conc 30.8 g/dL (30.0-36.0); Mean Corpuscular Hemoglobin 28.4 pg (28.0-34.0); Mean Corpuscular Volume 92.1 fL (80-94); Mean Platelet Volume 9.8 fL (7.4-10.4); Monocytes # 0.5 10^3/uL (0.2-0.9); Monocytes % 9.3 %; Neutrophils # 4.16 10^3/uL (1.8-7.7); Neutrophils % 73.4 %; Nucleated Red Blood Cells % 0 %; Platelet Count 208 10^3/cmm (130-400); Red Blood Count 3.17 10^6/uL (4.1-5.3); Red Cell Distribution Width 13.7 % (12.1-15.1); White Blood Count 5.7 10^3/uL (4.0-10.0)
[2020-06-14 06:50] VITALS: BP 121/79; PULSE 54; RESP 16; TEMP 36.7; O2SAT 100
[2020-06-14 06:52] LABS: Calcium 7.2 mg/dL (8.5-10.5); Carbon Dioxide 19 mmol/L (22-29); Chloride 110 mmol/L (98-107); Glomerular Filtration Rate 12.6 mL/min (90-130); Glucose 89 mg/dL (65-115); Magnesium 1.8 mg/dL (1.7-2.3); Osmolality Calculated 320 mOsm/kg (285-295); Phosphorus 5.9 mg/dL (2.5-4.5); Sodium 142 mmol/L (136-145)
[2020-06-14 07:18] LABS: Iron 45 ug/dL (59-158); Percent Saturation 21.8 % (20-50); Total Iron Binding Capacity 206 mcg/dl; Unsaturated Iron Binding 161 ug/dL (112-347); Uric Acid 5.3 mg/dL (3.4-7.0)
[2020-06-14 07:34] LABS: Blood Urea Nitrogen 88 mg/dL (8-23)
[2020-06-14] MEDS: amlodipine 5 mg Tablet PO (08:49)
[2020-06-14 10:33] VITALS: BP 118/74; PULSE 63; RESP 17; TEMP 36.6; O2SAT 100
--- NOTE | 2020-06-14 13:24 | PC.CHAP ---
Pastoral Care Encounter/Spiritual Assessment Type of Contact [] Declined boat fueler visit [] Patient/Family/Request visit [] Outpatient visit [] Follow-up visit [] Physician referral [] Code/Alert [xx] Routine visit [] Staff referral [] Actively dying [] Patient sleeping [] Family support [] [] Out of room [] Palliative care [] [] Receiving care in room [] Pre-surgical visit [] Trauma [] Long length of stay [] ICU visit [] Other: Relational/Emotional Strength [xx] Patient feels connected with others/family/visitors/staff [] Distress [] Loneliness/isolation [] Abandonment Spirituality of Patient [xx] Person of [place] [xx] Attends Orthodoxy of their [place] [xx] Believes in Prayer [xx] Reads Bible or Scientologist materials [] There are Spiritual issues to be addressed Hotel Maintenance Worker Interventions [] Prayer [] Active listening [] Non-anxious presence [] Spiritual/emotional support [] Crisis/trauma care [] Spiritual counseling [] Bereavement support [] Provided bereavement packet [] Provided Bible/devotional materials [] Provided toy/stuffed animal, coloring book to patient or family member [] Provided Communion [] Anointing/[place] [] Salvation [xx] Completed spiritual assessment [] Other: Impact on Illness or Injury [] Angry [] Fearful [] Anxious [] Often cries [] Exhaustion [] Unable to work [] Unable to attend sabianist [] Unable to walk/stand [] Unable to read [] Unable to drive [] Unable to eat/drink [] Unable to sleep [] Unable to be with family [] Patient intubated [] Other: Summary Patient very loquacious and a delight to visit. [facility] [place] [facility] [place]. He has been there several years with no modern conveniences such as electricity or phone. He lives off the land. Patient loves God and has served Him since age 21. Patient believes God has many plans for his life and this medical problem is just a trial and setback in accomplishing God's plans for his life. He is believing for a physical miracle. Time spent with patient 30 minutes
[2020-06-14 16:00] VITALS: BP 111/67; PULSE 66; RESP 17; TEMP 36.6; O2SAT 98
--- NOTE | 2020-06-14 16:03 | PM.PN ---
Subjective Subjective: Interval history: Overnight labs and H&P reviewed. Creatinine at 4.7 from 5.1 yesterday. Urine output 700 cc Medications: Reviewed: Yes Vitals/I&O/Wt Last Vital Signs Temp 97.9 F 06/14/20 10:33 Pulse 63 06/14/20 10:33 Resp 17 06/14/20 10:33 BP 118/74 06/14/20 10:33 Pulse Ox 100 06/14/20 10:33 06/14/20 06/14/20 06/14/20 06:59 14:59 22:59 Intake Total 420 / 420 Output Total 250 / 250 725 / 725 Balance -250 / 750 -305 / -305 Weight last 48 hrs Weight 55.338 kg Physical Exam Urinary Catheter Management^: Latex Free: Cath Placed During This Visit: yes Reason for Continuing Indwelling Catheter: Acute Urinary Retention or Obstruction Urinary Catheter Date of Insertion: 06/13/20 Urinary Catheter Time of Insertion: 22:20 Data : 06/14/20 06:01 06/14/20 06:01 A&P Assessment and plan (1) Acute renal failure: On top of chronic kidney disease stage IV by his description. Postobstructive process made worse by irregular utilization of self-catheterization. Potassium is normal suggesting that this is probably been a slow decline in renal function. Patient still able to urinate but only about 300 mL maximum at a time, reports most post void residual 300 to 400 mL though today was greater than 1000. He has been having right flank pain and was concerned that he had an obstructive stone either in his kidney or bladder. Status: Acute Qualifiers: Acute renal failure type: with other specified pathological lesion Qualified Code(s): N17.8 - Other acute kidney failure (2) UTI (urinary tract infection): Present on admission Status: Acute Qualifiers: Hematuria presence: without hematuria Urinary tract infection type: acute cystitis Qualified Code(s): N30.00 - Acute cystitis without hematuria (3) Bladder outlet obstruction: Chronically related to BPH Status: Acute (4) Bilateral hydronephrosis: No prior comparative films but he indicates what I suspect is having some hydronephrosis in the past Status: Acute (5) Urolithiasis: Right renal and bladder, currently nonobstructive Status: Chronic Qualifiers: Urinary calculus location: other lower urinary tract location Qualified Code(s): N21.8 - Other lower urinary tract calculus (6) BPH (benign prostatic hyperplasia): long standing, declines consideration for alpha blockers or surgery, does self cath when has supplies Status: Chronic Qualifiers: Lower urinary tract symptom detail: urinary obstruction Lower urinary tract symptom presence: symptoms present Qualified Code(s): N40.1 - Benign prostatic hyperplasia with lower urinary tract symptoms; N13.8 - Other obstructive and reflux uropathy (7) Anemia: Suspect anemia of chronic kidney disease, no reported blood loss Status: Acute Qualifiers: Anemia type: unspecified type Qualified Code(s): D64.9 - Anemia, unspecified (8) Hypertension: I suspect that this is been developing slowly over time due to progressive renal dysfunction, patient has noticed it himself Status: Acute Qualifiers: Hypertension type: secondary to other renal disorders Qualified Code(s): I15.1 - Hypertension secondary to other renal disorders; N28.89 - Other specified disorders of kidney and ureter (9) Financial difficulties: Affording medical supplies routinely Status: Chronic (10) Social isolation: lives off [facility], 28 years, on own since around 16, no running water, no electricity, no phone, has a car and a dog Status: Chronic Additional A&P Information Continue Cain catheter Continue OVF @ 75 cc/hr Monitor renal function as well as I's and O's closely Serial cardiac enzymes and EKGs negative for AMI. Continue iron supplementation for anemia Continue amlodipine for blood pressure control Empric Rocephin, follow-up pending cultures from urine administrative services assistant/Case management to evaluate and see if there is any assistance we can arrange for him particularly around getting self-catheterization supplies plus or minus insurance options. Anticipate follow-up with his primary care provider Estrella Villalta at [facility], possibly with Dr. Guzman and possibly with referral to nephrology if renal function continues to decline or poor urine output CODE STATUS was discussed with patient he does wish to be full code except if there was no chance of meaningful survival he would not want continued efforts. Attestations Medical Necessity Statement*: close monitoring of renal function, urine output Coding Level of Care Code Acute Bilingual Secretary for [facility] Fwd Diagnoses Acute renal failure N17.8 Acute renal failure type: with other specified pathological lesion UTI (urinary tract infection) N30.00 Hematuria presence: without hematuria Urinary tract infection type: acute cystitis Bladder outlet obstruction N32.0 Bilateral hydronephrosis N13.30 Urolithiasis N21.8 Urinary calculus location: other lower urinary tract location BPH (benign prostatic hyperplasia) N40.1; N13.8 Lower urinary tract symptom detail: urinary obstruction Lower urinary tract symptom presence: symptoms present Anemia D64.9 Anemia type: unspecified type Hypertension I15.1; N28.89 Hypertension type: secondary to other renal disorders Financial difficulties Z59.8 Social isolation Z60.4
--- NOTE | 2020-06-14 17:01 | PM.CONSULT ---
Providers/Reason For Consult Consulting Physican/Specialty*: Urology/Guzman Reason for Consult*: Chronic bladder outlet obstruction Attending Physician: Leanne Hamm MD Primary Care Provider: Estrella Matos History of Present Illness History of Present Illness Kristopher Cole is a 65 year old male who I evaluated for the first time today at the request of hospitalist service. Longstanding history of bladder obstruction with multiple evaluations previously in [place] and in [facility] by urology including 1 cystolitholapaxy. He has refused medical therapy for prostate cancer. Typical pharmacologic agents including alpha blockers and 5 alpha reductase inhibition. Over time he has had chronic urinary retention with severe bladder distention probably to the point of complete bladder decompensation. At 1 point he had 3+ liters in his bladder. He lives a very unconventional lifestyle out in the [facility] with no electricity or running water. At one point he did have alternative energy sources including solar but eventually with declining income he was not able to maintain any of those amenities. At some point he was placed on intermittent self-catheterization and was told he had to use a sterile catheter every time. That was quite a financial burden to him. He has procured catheters in the past but began to use them much less frequently due to the cost. Eventually this led to his hospitalization here where he was found to be in severe renal failure with a creatinine of 5+. CT scan showed bilateral hydronephrosis with chronic parenchymal thinning, severely distended bladder with chronic trabeculation and cellule formation, and large prostate. Cain catheter was placed. His creatinine has decreased somewhat. I spent about an hour interviewing the patient and talking with him about his status. He was encouraged to hear that he did not have to have a sterile catheter every time but he did note that in the past when he used catheters over and over he would have increased risk of getting UTIs. We discussed options for managing that both holistically and conventionally. We also compared the risk of UTI with the risk of poorly managing his bladder and progression of renal failure to end-stage renal disease and requirement for dialysis etc. It made sense to him tube may be compromised on catheter status in order to maintain functioning kidneys. Current recommendations: 1. Maintain Cain catheter for least 2 weeks. Can be discharged with both leg and night bags 2. Consult social welfare administrator to see if he is eligible for assistance. He recently lost his food stamps apparently due to to a accounting error. He reports that last year he survived on approximately $450 for the whole year. 3. Follow-up in my office in approximately 2 weeks for voiding trial and discussions related to better bladder management possibly cystoscopy. We will complete urologic evaluation at that visit. 4. I reviewed with him that I will be out of town for the next week. 5. Encouraged him to think creatively to help solve his day-to-day problems with management of his bladder. Review of Systems Const: Denies: fever(s) or chills Eyes: Denies: change in vision Card: Denies: chest pain or palpitations Resp: Denies: dyspnea or productive cough GI: Reports: abdominal pain and bloating : Reports: difficulty urinating, urinary dribbling and hematuria Musc: Denies: joint pain or joint stiffness Neuro: Denies: behavioral changes, Slurred speech present or seizure-like activity Psych: Denies: anxiety or depression [place]/Lymph: Denies: easy bleeding All/Imm: Denies: urticaria or acute wheezing Meds/Allergies Home Medications and Allergies Home Medications Medication Instructions Recorded Confirmed Last Taken Type ciprofloxacin HCl [Cipro] 500 mg PO Q12H 06/13/20 06/13/20 Unknown History Allergies Allergy/AdvReac Type Severity Reaction Status Date / Time Latex, Natural Rubber Allergy Intermediate ALGY-Rash Verified 06/13/20 15:37 codeine Allergy ALGY-Rash Verified 06/13/20 15:37 Current Medications Current Medications Generic Name Dose Route Start Last Admin Trade Name Freq PRN Reason Stop Dose Admin Amlodipine Besylate 5 mg 06/14/20 09:00 06/14/20 08:49 Amlodipine 5 Mg Tablet PO 5 mg DAILY LUI Administration Sodium Chloride 1,000 mls @ 75 mls/hr 06/13/20 23:36 06/14/20 03:47 Sodium Chloride 0.9% IV 75 mls/hr .[id number] LUI Administration PFSH Acute PFSH: Medical History BPH (benign prostatic hyperplasia) (~2000) long standing, declines consideration for alpha blockers or surgery, does self cath when has supplies CKD (chronic kidney disease) stage 4, GFR 15-29 ml/min 2020 GFR 19 History of pneumonia younger years, recurrent, none in years Social isolation [place], [place] years, on own since around 16, no running water, no electricity, no phone, has a car and a dog Urolithiasis History of bladder and right renal stones Surgical History History of lithotripsy (~01/2015) large bladder stone, Romi Mcclelland Status post tendon repair (~1996) both hands Family History Father Alcoholism Social History Smoking and tobacco status: never smoked Second hand smoke exposure: Yes Alcohol intake: never Substance/Drug Use: former Date of last use: remote THC Lives independently: Yes Household members: other Details: dog Housing: Other Details: no running water, electricity, phone, lives [place] grid 28+ years Financial difficulty paying for basics: Hard Vitals/I&O/Wt Last Vital Signs Temp 97.9 F 06/14/20 10:33 Pulse 63 06/14/20 10:33 Resp 17 06/14/20 10:33 BP 118/74 06/14/20 10:33 Pulse Ox 100 06/14/20 10:33 06/14/20 06/14/20 06/14/20 06:59 14:59 22:59 Intake Total 420 / 420 Output Total 250 / 250 725 / 725 Balance -250 / 750 -305 / -305 Weight last 48 hrs Weight 122 lb Physical Exam Narrative: EXAM NARRATIVE: General: Alert oriented no acute distress Respiratory: No audible wheezing. No labored respiration good air movement Neck: nl ROM Urinary Catheter Management^: Latex Free: Cath Placed During This Visit: yes Reason for Continuing Indwelling Catheter: Acute Urinary Retention or Obstruction Urinary Catheter Date of Insertion: 06/13/20 Urinary Catheter Time of Insertion: 22:20 A&P Assessment and plan (1) Bladder outlet obstruction: Recommend maintaining Cain catheter for least 2 weeks then reinstitute S CIC 4-6 times per day keeping total bladder volumes low. Status: Acute (2) Bilateral hydronephrosis: Status: Acute (3) UTI (urinary tract infection): Status: Acute Qualifiers: Urinary tract infection type: acute cystitis Hematuria presence: without hematuria Qualified Code(s): N30.00 - Acute cystitis without hematuria (4) Financial difficulties: Consult social welfare administrator Status: Chronic Consult Attestations Medical Necessity Statement: See attending Coding Level of Care Code Acute License And Permit Specialist for [facility] Fwd Diagnoses Bladder outlet obstruction N32.0 Bilateral hydronephrosis N13.30 UTI (urinary tract infection) N30.00 Urinary tract infection type: acute cystitis Hematuria presence: without hematuria Financial difficulties Z59.8
[2020-06-14 19:18] VITALS: BP 106/62; PULSE 69; RESP 18; TEMP 36.8; O2SAT 98
--- NOTE | 2020-06-14 19:25 | PC.NURSE ---
Report to Alix/Estrella Irizarry LPN at this time.
[2020-06-14] MEDS: cefTRIAXone 1,000 MG in sodium chloride 0.9% (plus) 50 ML 100 MG IV (21:59)
[2020-06-14] MEDS: ferrous sulfate EC 325 mg Tablet PO (21:59)
[2020-06-15] VITALS (7 sets, daily range): BP systolic 109–155; BP diastolic 67–76; PULSE 59–80; RESP 16–18; TEMP 36.6–37.2; O2SAT 97–98
[2020-06-15] MEDS: sodium chloride 0.9% 1,000 ML 75 ML IV (06:12)
[2020-06-15 07:11] LABS: Anion Gap 18.2 (5-19); Calcium 6.9 mg/dL (8.5-10.5); Carbon Dioxide 18 mmol/L (22-29); Chloride 110 mmol/L (98-107); Glomerular Filtration Rate 13.6 mL/min (90-130); Glucose 101 mg/dL (65-115); Osmolality Calculated 321 mOsm/kg (285-295); Potassium 4.2 mmol/L (3.5-5.1); Sodium 142 mmol/L (136-145)
[2020-06-15 07:27] LABS: Blood Urea Nitrogen 87 mg/dL (8-23)
[2020-06-15] MEDS: ferrous sulfate EC 325 mg Tablet PO ×2 (08:28→20:19)
[2020-06-15] MEDS: amlodipine 5 mg Tablet PO (08:28)
[2020-06-15] MEDS: phenazopyridine 100 mg Tablet PO (15:10)
--- NOTE | 2020-06-15 16:18 | PC.NURSE ---
Patient states. I have chest pain that goes into my left arm pit. I have had it before and usually goes away. Vitals signs taken 98.7 Temp 67, HR, 123/76 blood pressure, 97% oxygen. Patient rates the pain a 2/10 Telemetry box placed on patient. Normal Sinus Rhythm at 63.
--- NOTE | 2020-06-15 16:49 | PC.NURSE ---
In room to check on patient. Patient states, The chest pain is gone I think it was just the way I was sitting. Patient rates pain a 0/10.
--- NOTE | 2020-06-15 17:48 | P.PN_ITS ---
Subjective Subjective: Interval history: Patient seen sitting up in bed eating dinner. He says he just awoke from a nap. His only concern is that of the blood clots in his catheter. He says he does not usually have that at home. He normally self caths his report to me is that he uses a new catheter each time however I saw documentation otherwise. Vitals/I&O/Wt Last Vital Signs Temp 98.2 F 06/15/20 16:00 Pulse 67 06/15/20 16:00 Resp 17 06/15/20 16:00 BP 123/76 06/15/20 16:00 Pulse Ox 97 06/15/20 16:00 06/15/20 06/15/20 06/15/20 06:59 14:59 22:59 Intake Total 978.75 / 2588.75 720 / 720 832.5 / 1552.5 Output Total 2200 / 2925 1800 / 1800 Balance -1221.25 / -336.25 720 / 720 -967.5 / -247.5 Physical Exam Narrative: EXAM NARRATIVE: General patient appears his stated age of 65. He is in no acute distress.THin Heart: Regular rate and rhythm normal S1-S2 without murmurs clicks gallops or rubs Lungs: Clear to auscultation no wheezes rales or rhonchi auscultated. Abdomen flat soft nontender nondistended normal active bowel sounds. Extremities: No clubbing cyanosis or edema. Urinary Catheter Management^: Latex Free: Cath Placed During This Visit: yes Reason for Continuing Indwelling Catheter: Chronic Indwelling Urinary Catheter on Admission Urinary Catheter Date of Insertion: 06/13/20 Urinary Catheter Time of Insertion: 22:20 Data : 06/14/20 06:01 06/15/20 06:20 Micro: Microbiology 06/13/20 16:45 Urine Culture - Preliminary Urine,Clean Catch A&P Assessment and plan (1) Social isolation: Status: Chronic (2) Acute renal failure: improving with hwang and fluids. Increase fluids to 150 ml/hr Status: Acute Qualifiers: Acute renal failure type: with other specified pathological lesion Qualified Code(s): N17.8 - Other acute kidney failure (3) Bilateral hydronephrosis: as above Status: Acute (4) Bladder outlet obstruction: as above. to maintain hwang after discharge and follow up with Dr. Brown Status: Acute (5) BPH (benign prostatic hyperplasia): declines treatment. Will readdress tomorrow. Give him a break from repetition of recommendations Status: Chronic Qualifiers: Lower urinary tract symptom presence: symptoms present Lower urinary tract symptom detail: urinary obstruction Qualified Code(s): N40.1 - Benign prostatic hyperplasia with lower urinary tract symptoms; N13.8 - Other obst ructive and reflux uropathy Attestations Medical Necessity Statement*: acute renal failure requiring fluid resusitation Coding Level of Care Code Acute Manager Medical Device for [facility] Fwd Diagnoses Social isolation Z60.4 Acute renal failure N17.8 Acute renal failure type: with other specified pathological lesion Bilateral hydronephrosis N13.30 Bladder outlet obstruction N32.0 BPH (benign prostatic hyperplasia) N40.1; N13.8 Lower urinary tract symptom presence: symptoms present Lower urinary tract symptom detail: urinary obstruction
--- NOTE | 2020-06-15 19:50 | PC.NURSE ---
Report to Mahnaz TRUJILLO AT THIS TIME.
[2020-06-15] MEDS: cefTRIAXone 1,000 MG in sodium chloride 0.9% (plus) 50 ML 100 MG IV (20:18)
[2020-06-15] MEDS: sodium chloride 0.9% 1,000 ML 150 ML IV (20:18)
[2020-06-16] VITALS (8 sets, daily range): BP systolic 113–138; BP diastolic 69–78; PULSE 61–90; RESP 17–20; TEMP 36.4–37; O2SAT 95–99
[2020-06-16] MEDS: phenazopyridine 100 mg Tablet PO ×2 (03:29→22:56)
[2020-06-16] MEDS: sodium chloride 0.9% 1,000 ML 150 ML IV ×4 (03:30→22:56)
[2020-06-16 07:39] LABS: Anion Gap 17.7 (5-19); Blood Urea Nitrogen 79 mg/dL (8-23); Calcium 6.4 mg/dL (8.5-10.5); Carbon Dioxide 15 mmol/L (22-29); Chloride 114 mmol/L (98-107); Glomerular Filtration Rate 15.6 mL/min (90-130); Glucose 93 mg/dL (65-115); Osmolality Calculated 319 mOsm/kg (285-295); Potassium 3.7 mmol/L (3.5-5.1); Sodium 143 mmol/L (136-145)
[2020-06-16] MEDS: ferrous sulfate EC 325 mg Tablet PO ×2 (09:15→17:44)
[2020-06-16] MEDS: amlodipine 5 mg Tablet PO (09:16)
--- NOTE | 2020-06-16 18:36 | PM.PN ---
Subjective Subjective: Interval history: Reports blood clots improved and may now be resolved. Believes he has prostitis. was given cipro the day he was admitted. Wishes to have this started. Pain immediately superpubic and in the past it was prostate related. Medications: Reviewed: Yes Vitals/I&O/Wt Last Vital Signs Temp 98.1 F 06/16/20 15:03 Pulse 90 06/16/20 15:03 Resp 17 06/16/20 15:03 BP 113/70 06/16/20 15:03 Pulse Ox 97 06/16/20 15:03 06/16/20 06/16/20 06/16/20 06:59 14:59 22:59 Intake Total 1000 / 3130.0 2045 / 2045 1000 / 3045 Output Total 1300 / 4500 1950 / 1950 1625 / 3575 Balance -300 / -1370.0 95 / 95 -625 / -530 Physical Exam Narrative: EXAM NARRATIVE: General patient appears his stated age of 65. He is in no acute distress.THin Heart: Regular rate and rhythm normal S1-S2 without murmurs clicks gallops or rubs Lungs: Clear to auscultation no wheezes rales or rhonchi auscultated. Abdomen flat soft mildly sustainable agriculture faculty superpubic. nondistended normal active bowel sounds. Extremities: No clubbing cyanosis or edema. Urinary Catheter Management^: Latex Free: Cath Placed During This Visit: yes Reason for Continuing Indwelling Catheter: Other Urinary Catheter Date of Insertion: 06/13/20 Urinary Catheter Time of Insertion: 22:20 Data : 06/14/20 06:01 06/16/20 06:34 Micro: Microbiology 06/13/20 16:45 Urine Culture - Final Urine,Clean Catch A&P Assessment and plan (1) Social isolation: Status: Chronic (2) Acute renal failure: improving with hwang and fluids. maintain fluids at 150 ml/hr until tomorrow. Then consider a decrease. Anticipate sCr of 3.4 tomorrow. Home in next 1-2 days. Status: Acute Qualifiers: Acute renal failure type: with other specified pathological lesion Qualified Code(s): N17.8 - Other acute kidney failure (3) Bilateral hydronephrosis: as above Status: Acute (4) Bladder outlet obstruction: to maintain hwang after discharge and follow up with Dr. Brown Status: Acute (5) BPH (benign prostatic hyperplasia): declines treatment with surgery or medications. He likely will need suprapubic catheter. Status: Chronic Qualifiers: Lower urinary tract symptom presence: symptoms present Lower urinary tract symptom detail: urinary obstruction Qualified Code(s): N40.1 - Benign prostatic hyperplasia with lower urinary tract symptoms; N13.8 - Other obstructive and reflux uropathy Additional A&P Information ? prostatitis - start cipro. pharmacy to order for crcl<30. CODE STATUS was discussed with patient he does wish to be full code except if there was no chance of meaningful survival he would not want continued efforts. Attestations Medical Necessity Statement*: continuous fluids and close monitoring for renal failure and new treatments. anticipate 1-2 days before discharge Coding Level of Care Code Acute Cafeteria Monitor for [facility] Fwd Diagnoses Social isolation Z60.4 Acute renal failure N17.8 Acute renal failure type: with other specified pathological lesion Bilateral hydronephrosis N13.30 Bladder outlet obstruction N32.0 BPH (benign prostatic hyperplasia) N40.1; N13.8 Lower urinary tract symptom presence: symptoms present Lower urinary tract symptom detail: urinary obstruction
[2020-06-16] MEDS: ciprofloxacin 500 mg Tablet PO (19:35)
[2020-06-17] VITALS (7 sets, daily range): BP systolic 117–136; BP diastolic 65–75; PULSE 64–75; RESP 17–22; TEMP 36.6–37.7; O2SAT 95–98
[2020-06-17] MEDS: sodium chloride 0.9% 1,000 ML 150 ML IV ×2 (04:59→11:23)
[2020-06-17] MEDS: phenazopyridine 100 mg Tablet PO ×3 (08:41→23:16)
[2020-06-17] MEDS: ferrous sulfate EC 325 mg Tablet PO ×2 (08:41→17:36)
[2020-06-17] MEDS: amlodipine 5 mg Tablet PO (08:41)
--- NOTE | 2020-06-17 13:15 | P.PN_ITS ---
Subjective Subjective: Interval history: Creatinine improving to 3.9 today, urine output at 7 L, no hematuria. Overnight T-max recorded at 99.8 Fahrenheit. Medications: Reviewed: Yes Vitals/I&O/Wt Last Vital Signs Temp 98.2 F 06/17/20 11:09 Pulse 75 06/17/20 11:09 Resp 18 06/17/20 11:09 BP 127/73 06/17/20 11:09 Pulse Ox 95 06/17/20 11:09 06/16/20 06/17/20 06/17/20 22:59 06:59 14:59 Intake Total 2480 / 4525 1027.5 / 5552.5 1560 / 1560 Output Total 2825 / 4775 1900 / 6675 2300 / 2300 Balance -345 / -250 -872.5 / -1122.5 -740 / -740 Physical Exam Narrative: EXAM NARRATIVE: GEN: Awake, alert and oriented, no acute distress CVS: S1S2 N RS: CTA B/L Abd: Soft, nt/nd , bs+ DIRECTOR FINANCIAL PLANNING: no focal neuro deficits Cain in place, no hematuria, clear kevin-colored urine. Urinary Catheter Management^: Latex Free: Cath Placed During This Visit: yes Reason for Continuing Indwelling Catheter: Acute Urinary Retention or Obstruction Urinary Catheter Date of Insertion: 06/13/20 Urinary Catheter Time of Insertion: 22:20 Data : 06/14/20 06:01 06/16/20 06:34 Micro: Microbiology 06/13/20 16:45 Urine Culture - Preliminary Urine,Clean Catch Staphylococcus sp coag neg Staphylococcus sp coag neg#2 A&P Assessment and plan (1) Acute renal failure: On top of chronic kidney disease stage IV by his description. Postobstructive process made worse by irregular utilization of self- catheterization. Per patient description, he was diagnosed also to have post obstructive acute renal failure in 2014 which required admission at [facility]. Creatinine at that time was also in the 5 range per patient description. Dialysis was briefly considered but eventually deferred as kidney function improved. Cr has been trended with PCP Estrella Matos [phone], called today to obtain trend to get baseline cr numbers. 07/2018 cr 2.5, 04/2019 3.5, 06/2019 3.3, 05/2020 5.5. Patient hopeful that cr would trend down to 2.9, however I have explained to him extensively today that based on this chronic decline in baseline of between 3.3-3.5, it may not be realistic to target 2.9 and creatinine is unlikely to come down to this number on this current admission. Also explained to him that more important than the creatinine number itself at this time is that he continues to make adequate urine output. Currently urine output was at 7 L. He is currently running 150 cc an hour of fluid, will discontinue the same, encourage p.o. intake and monitor urine output over the next 24 to 48 hours. No current urgent indication for HD Based on patient history, normal electrolytes, overall copensated metabolically with chronic findings of cytitis, bladder trabeculations, hydronephrosis, this is a chronbic process. 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 Will discharge with Cain for now with f/up with urology in the next 10-14 days. T max overnight at 99.8F, monitor for now. Status: Acute Qualifiers: Acute renal failure type: with other specified pathological lesion Qualified Code(s): N17.8 - Other acute kidney failure (2) UTI (urinary tract infection): Present on admission, likely also with chronic prostatitis given his history. Currently on empiric po ciprofloxacin will prescribe for at least over the next 6 to 8 weeks Urine cx with multiple colonies, thought to be contamination but given clinical situation, may be true culprtits, asked micro lab to work up specimen. Status: Acute Qualifiers: Urinary tract infection type: acute cystitis Hematuria presence: without hematuria Qualified Code(s): N30.00 - Acute cystitis without hematuria (3) Bladder outlet obstruction: Chronically related to BPH Status: Acute (4) Bilateral hydronephrosis: No prior comparative films but he indicates what I suspect is having some hydronephrosis in the past Status: Acute (5) Urolithiasis: Right renal and bladder, currently nonobstructive Status: Chronic Qualifiers: Urinary calculus location: other lower urinary tract location Qualified Code(s): N21.8 - Other lower urinary tract calculus (6) BPH (benign prostatic hyperplasia): long standing, declines consideration for alpha blockers or surgery, does self cath when has supplies Status: Chronic Qualifiers: Lower urinary tract symptom presence: symptoms present Lower urinary tract symptom detail: urinary obstruction Qualified Code(s): N40.1 - Benign prostatic hyperplasia with lower urinary tract symptoms; N13.8 - Other obstructive and reflux uropathy (7) Anemia: Suspect anemia of chronic kidney disease, no reported blood loss Status: Acute Qualifiers: Anemia type: unspecified type Qualified Code(s): D64.9 - Anemia, unspecified (8) Hypertension: I suspect that this is been developing slowly over time due to progressive renal dysfunction, patient has noticed it himself Status: Acute Qualifiers: Hypertension type: secondary to other renal disorders Qualified Code(s): I15.1 - Hypertension secondary to other renal disorders; N28.89 - Other specified disorders of kidney and ureter (9) Financial difficulties: Affording medical supplies routinely Currently we are helping him with medicaid and financial assitanace applications as he needs follow up Status: Chronic (10) Social isolation: lives off [facility], 28 years, on own since around 16, no running water, no electricity, no phone, has a car and a dog. Status: Chronic Attestations Medical Necessity Statement*: stop IVF, monitor urine output and cr off iv fluids, monitor for any development of fever or sepsis given tmax 99.8 overnight Coding Level of Care Code Acute Banking Assistant for Chg Fwd Diagnoses Acute renal failure N17.8 Acute renal failure type: with other specified pathological lesion UTI (urinary tract infection) N30.00 Urinary tract infection type: acute cystitis Hematuria presence: without hematuria Bladder outlet obstruction N32.0 Bilateral hydronephrosis N13.30 Urolithiasis N21.8 Urinary calculus location: other lower urinary tract location BPH (benign prostatic hyperplasia) N40.1; N13.8 Lower urinary tract symptom presence: symptoms present Lower urinary tract symptom detail: urinary obstruction Anemia D64.9 Anemia type: unspecified type Hypertension I15.1; N28.89 Hypertension type: secondary to other renal disorders Financial difficulties Z59.8 Social isolation Z60.4
[2020-06-17] MEDS: ciprofloxacin 500 mg Tablet PO (14:39)
[2020-06-18] VITALS: BP 113/64; PULSE 66; RESP 17; TEMP 37.3; O2SAT 97
[2020-06-18 04:00] VITALS: BP 127/73; PULSE 64; RESP 18; TEMP 36.9; O2SAT 96
[2020-06-18] MEDS: ciprofloxacin 500 mg Tablet PO (06:38)
[2020-06-18] MEDS: phenazopyridine 100 mg Tablet PO (06:38)
[2020-06-18 08:00] VITALS: BP 128/70; PULSE 66; RESP 18; TEMP 36.8; O2SAT 96
[2020-06-18 08:14] LABS: Alanine Aminotransferase 34 U/L (0-41); Albumin Level 3.2 g/dL (3.5-5.2); Alkaline Phosphatase 50 IU/L (40-130); Anion Gap 16.2 (5-19); Aspartate Amino Transferase 24 U/L (0-40); Blood Urea Nitrogen 71 mg/dL (8-23); Calcium 6.4 mg/dL (8.5-10.5); Carbon Dioxide 17 mmol/L (22-29); Chloride 114 mmol/L (98-107); Globulin 3.1 g/dL (1.3-4.6); Glomerular Filtration Rate 16.1 mL/min (90-130); Glucose 84 mg/dL (65-115); Osmolality Calculated 316 mOsm/kg (285-295); Potassium 4.2 mmol/L (3.5-5.1); Sodium 143 mmol/L (136-145); Total Bilirubin 0.2 mg/dL (0.15-1.2); Total Protein 6.3 g/dL (6.6-8.7)
[2020-06-18] MEDS: ferrous sulfate EC 325 mg Tablet PO ×2 (08:21→18:48)
[2020-06-18] MEDS: amlodipine 5 mg Tablet PO (08:21)
[2020-06-18 11:07] VITALS: BP 120/72; PULSE 69; RESP 18; TEMP 36.8; O2SAT 96
--- NOTE | 2020-06-18 15:06 | P.DS_ITS ---
Discharge Providers Date of Admission: 06/13/20 18:34 Date of Discharge: June 18, 2020 Attending Provider at Admission: Donta Minaya Attending Provider at Discharge: Leanne Hamm MD Primary Care Provider: Estrella Matos Diagnoses at Discharge Discharge Diagnosis (1) Acute renal failure: Status: Acute Qualifiers: Acute renal failure type: with other specified pathological lesion Qualified Code(s): N17.8 - Other acute kidney failure (2) UTI (urinary tract infection): Status: Acute Qualifiers: Urinary tract infection type: acute cystitis Hematuria presence: without hematuria Qualified Code(s): N30.00 - Acute cystitis without hematuria (3) Bladder outlet obstruction: Status: Acute (4) Bilateral hydronephrosis: Status: Acute (5) Urolithiasis: Status: Chronic Permanent problem details: History of bladder and right renal stones Qualifiers: Urinary calculus location: other lower urinary tract location Qualified Code(s): N21.8 - Other lower urinary tract calculus (6) BPH (benign prostatic hyperplasia): Status: Chronic Permanent problem details: long standing, declines consideration for alpha blockers or surgery, does self cath when has supplies Qualifiers: Lower urinary tract symptom presence: symptoms present Lower urinary tract symptom detail: urinary obstruction Qualified Code(s): N40.1 - Benign prostatic hyperplasia with lower urinary tract symptoms; N13.8 - Other obstructive and reflux uropathy (7) Anemia: Status: Acute Qualifiers: Anemia type: unspecified type Qualified Code(s): D64.9 - Anemia, unspecified (8) Hypertension: Status: Acute Qualifiers: Hypertension type: secondary to other renal disorders Qualified Code(s): I15.1 - Hypertension secondary to other renal disorders; N28.89 - Other specified disorders of kidney and ureter (9) Financial difficulties: Status: Chronic Permanent problem details: Affording medical supplies routinely (10) Social isolation: Status: Chronic Permanent problem details: lives off grid, 28 years, on own since around 15, no running water, no electricity, no phone, has a car and a dog Reason for Visit Reason for Visit: obstructive prostatic hypertrophy related issues Hospital Course Hospital Course Patient is a 65-year-old male with CKD, long standing BPH and bladder outlet obstruction, recurrent UTIs and possible prostatitis who presented to the emergency room on 06/13/2020 with complaints of acute on chronic renal failure after being noted to have worsening kidney function on routine labs to 5.5 after being on a baseline of 3.3-3.07/2019. Hospital course as follows: (1) Acute renal failure: On top of chronic kidney disease stage IV. Postobstructive process made worse by irregular utilization of self-catheterization. Creatinine greater than 5 upon admission, now trended down to 3.8, which is his recent baseline. Cr has been trended with PCP Estrella Matos [phone], called to obtain trend to get baseline cr numbers. 07/2018 cr 2.5, 04/2019 3.5, 06/2019 3.3, 05/2020 5.5. No current urgent indication for HD Based on patient history, normal electrolytes, overall copensated metabolically with chronic findings of cytitis, bladder trabeculations, hydronephrosis, this is a chronic process. 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 Will discharge with Cain for now with f/up with urology in the next 10-14 days. Patient is extremely hesitant to start on any alpha blockers as he is worried about potential fertility effects from the same, states that he would like to have kids in the future. 2) UTI (urinary tract infection): Present on admission, likely also with chronic prostatitis given his history. Currently on empiric po ciprofloxacin will prescribe for at least over the next 6 to 8 weeks Urine cx with multiple colonies, thought to be contamination but given clinical situation, may be true culprtits, asked micro lab to work up specimen. Culture remains pending at the time of discharge, follow-up as outpatient (3) Bladder outlet obstruction: Chronically related to BPH Patient supposed to be performing intermittent self cath at home, however has b een unable to do this regularly. Currently being discharged with a Cain catheter in place, follow-up arranged with urology as outpatient. 4) Bilateral hydronephrosis: No prior comparative films most likely to be chronic (5) Hypertension: Norvasc 5 mg p.o. 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 Urinary Catheter Management^: Latex Free: Cath Placed During This Visit: yes Reason for Continuing Indwelling Catheter: Acute Urinary Retention or Obstruction Urinary Catheter Date of Insertion: 06/13/20 Urinary Catheter Time of Insertion: 22:20 Discharge Data Data Completed and Pending: Completed Studies During Hospitalization Category Date Time Status CT abdomen pelvis wo con [id number] Urge nt Cat Scan 06/13/20 17:02 Completed XR chest 1V rosa ble [id number] Urgent Exams 06/13/20 15:54 Completed Labs from last 24 hours 06/18/20 07:45 Sodium 143 Potassium 4.2 Chloride 114 H Carbon Dioxide 17 L Anion Gap 16.2 BUN 71 H Creatinine 3.8 H GFR Calculation 16.1 L Glucose 84 Calculated Osmolal ity 316 H Calcium 6.4 L Total Bilirubin 0.2 AST 24 ALT 34 Alkaline Phosphata se 50 Total Protein 6.3 L Albumin 3.2 L Globulin 3.1 Vitals: Last Vital Signs Temp 98.2 F 06/18/20 11:07 Pulse 69 06/18/20 11:07 Resp 18 06/18/20 11:07 BP 120/72 06/18/20 11:07 Pulse Ox 96 06/18/20 11:07 Discharge Plan Discharge Patient Disposition: Home Condition: Stable Prescriptions: New acetaminophen 325 mg Tablet 650 mg PO Q6H PRN (Reason: Mild/Mod Pain Or Temp >/= 101) Qty: 0 RF: 0 amlodipine 5 mg Tablet 5 mg PO DAILY 30 Days Qty: 30 RF: 0 phenazopyridine 100 mg Tablet 100 mg PO TID PRN (Reason: Dysuria) 10 Days Qty: 30 RF: 0 ferrous sulfate 325 mg (65 mg iron) Tablet,Delayed Release (Dr/Ec) 325 mg PO BIDWM 30 Days Qty: 60 RF: 0 Changed Cipro 500 mg Tablet 500 mg PO Q24H 42 Days Qty: 42 RF: 0 Discharge Orders: Discharge Order (Routine); Ordered 06/14/20 Ordered By: Kayode Guzman Referrals: Kayode Guzman MD [Physician] - 07/05/20 10:00 am (Possible cystoscopy, [facility] will call you on Wednesday to set up an appointment.) Discharge Diet: Usual diet Discharge Activity: Resume usual activity Patient Instructions: Iron Supplements (By mouth), Phenazopyridine (By mouth), Amlodipine (By mouth), Kidney Stones (DC), Benign Prostatic Hypertrophy (DC), Hypertension (DC), Anemia (DC) Discharge Attestations Time Spent in Discharge Care*: greater than 30 min Specific Discharge Activities: educating patient, discussing with pcp/other providers, discussing with case making machine operator/social workers/dc planners, documenting/other paperwork and evaluating patient/reviewing data Quality Metrics Clinical Quality Measures During this hospital stay, did patient experience: None Coding Level of Care Code Acute Chg FW DC note Diagnoses Acute renal failure N17.8 Acute renal failure type: with other specified pathological lesion UTI (urinary tract infection) N30.00 Urinary tract infection type: acute cystitis Hematuria presence: without hematuria Bladder outlet obstruction N32.0 Bilateral hydronephrosis N13.30 Urolithiasis N21.8 Urinary calculus location: other lower urinary tract location BPH (benign prostatic hyperplasia) N40.1; N13.8 Lower urinary tract symptom presence: symptoms present Lower urinary tract symptom detail: urinary obstruction Anemia D64.9 Anemia type: unspecified type Hypertension I15.1; N28.89 Hypertension type: secondary to other renal disorders Financial difficulties Z59.8 Social isolation Z60.4
[2020-06-18 16:00] VITALS: BP 136/77; PULSE 76; RESP 18; O2SAT 97
[2020-06-18 19:15] VITALS: BP 136/77; PULSE 76; RESP 18; O2SAT 97
== END 2020-06-18 19:00 | disposition home or self-care (01) | DRG 683 ==
LOC: ER 15:38 → MEDSURG 19:09
PROVIDERS: Hospitalist; Admitting Provider Internal Medicine; Emergency Provider Family Medicine; PCP Nurse Practitioner Family; Visit Provider Student in an Organized Health Care Education/Training Program
DX: N17.8 Other acute kidney failure (principal); N13.8 Other obstructive and reflux uropathy; N30.00 Acute cystitis without hematuria; N40.1 Benign prostatic hyperplasia with lower urinary tract symptoms; R39.14 Feeling of incomplete bladder emptying; Z87.442 Personal history of urinary calculi; Z87.440 Personal history of urinary (tract) infections; I15.1 Hypertension secondary to other renal disorders; I12.9 Hypertensive chronic kidney disease with stage 1 through stage 4 chronic kidney disease, or unspecified chronic kidney disease; N18.4 Chronic kidney disease, stage 4 (severe); Z87.01 Personal history of pneumonia (recurrent); N21.8 Other lower urinary tract calculus; D63.1 Anemia in chronic kidney disease; Z60.4 Social exclusion and rejection; Z59.8 Other problems related to housing and economic circumstances; N41.1 Chronic prostatitis
CPT/HCPCS: 36415; 51702; 71045; 74176; 80048; 80053; 81001; 83540; 83550; 83605; 83735; 83880; 84100; 84484; 84550; 85025; 86140; 87077; 87086; 87186; 93005; 96365; 99285; J0696; J7030

== ENCOUNTER → 2020-11-13 09:37 | Outpatient (BNVA) | payer MEDICAID, SELFPAY | PROVIDERS: PCP Nurse Practitioner Family; Visit Provider Urology | DX: N30.00 Acute cystitis without hematuria (principal); N40.1 Benign prostatic hyperplasia with lower urinary tract symptoms; R33.9 Retention of urine, unspecified; N13.30 Unspecified hydronephrosis | CPT/HCPCS: 81003 ==

== ENCOUNTER 2021-03-25 18:48 | Emergency (ER) | payer MEDICAID, SELFPAY ==
[2021-03-25 19:07] VITALS: BP 135/80; PULSE 71; RESP 16; TEMP 36.7; O2SAT 99; BMI 17.9
--- NOTE | 2021-03-25 19:22 | W.ED.GENADLT ---
HPI - General Adult General: Chief complaint: General Medical Stated complaint: N/V Time Seen by Provider: 03/25/21 19:19 Source: patient Mode of arrival: ambulatory History of Present Illness: HPI narrative: 65-year-old male with nausea and vomiting, instructed to come to the ED by his PCP because of abnormal renal function. He has history of chronic kidney disease, anemia, urinary retention requiring self catheterizations several times a day, recurrent UTIs. He has been living without running water or electricity for several years, and thinks that his unhygienic conditions are perpetuating his UTIs. He has lower abdominal pain, heartburn, nausea and vomiting for 2 days. [facility] ED PFSH: Medical History (Updated 03/25/21 @ 22:36 by Marlene Balderas MD) BPH (benign prostatic hyperplasia) (~2000) long standing, declines consideration for alpha blockers or surgery, does self cath when has supplies BPH loc w urin obs/LUTS CKD (chronic kidney disease) stage 4, GFR 15-29 ml/min 2020 GFR 19 History of pneumonia younger years, recurrent, none in years Social isolation lives off grid, 28 years, on own since around 16, no running water, no electricity, no phone, has a car and a dog Urolithiasis History of bladder and right renal stones Surgical History History of lithotripsy (~01/2015) large bladder stone, [facility] Status post tendon repair (~1996) both hands Family History Father , at age 47 Alcoholism Suicide Mother , at age 60 Alzheimer disease Social History Smoking and tobacco status: never smoked Second hand smoke exposure: Yes Alcohol intake: never Lives independently: Yes Household members: other Details: dog Housing: Other Details: no running water, electricity, phone, lives off grid 28+ years Marital status: Current occupational status: employed 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 History of recent travel: No Financial difficulty paying for basics: Hard Physical Exam Const: COMMON NORMALS: no acute distress, average body habitus, patient oriented x3 and alert GENERAL APPEARANCE: cooperative, comfortable and well kempt NUTRITIONAL APPEARANCE: underweight HENMT: COMMON NORMALS: normocephalic HEAD & SCALP: normocephalic FACE & SINUS: normal facial exam and face symmetric Eye: COMMON NORMALS: Equal, round and reactive pupils present, EOMs intact bilaterally and conjunctivae normal CONJUNCTIVA: Yes conjunctivae normal PUPIL: Yes Equal, round and reactive pupils present Resp: COMMON NORMALS: normal respiratory effort EFFORT & INSPECTION: Yes able to speak in complete sentences Cardio: COMMON NORMALS: regular rate and regular rhythm RATE: regular rate RHYTHM: regular rhythm GI: COMMON NORMALS: Soft to palpation INSPECTION: Yes normal to inspection PALPATION: Yes Soft to palpation, No Tenderness to palpation present (GI), No Guarding due to palpation present (GI) and No Rigid due to palpation Extremity: COMMON NORMALS: normal to inspection, full ROM and capillary refill normal Neuro: COMMON NORMALS: patient oriented x3 and moves all extremities SENSORIUM/ORIENTATION: Yes alert Psych: COMMON NORMALS: mental status grossly normal, Normal thought process present and cooperative APPEARANCE: Yes well kempt THOUGHT PROCESS: Normal thought process present Skin: COMMON NORMALS: no rashes or lesions noted, no wounds and turgor normal GENERAL SKIN EXAM: no rashes or lesions noted and turgor normal Course Vital Signs: Vital signs: Vital Signs Temperature 98.1 F 03/25/21 19:07 Pulse Rate 64 03/25/21 22:17 Respiratory Rate 18 03/25/21 22:17 Blood Pressure 108/55 03/25/21 22:17 Pulse Oximetry 97 03/25/21 22:17 MDM - General Adult MDM Narrative: Medical decision making narrative: 65-year-old male with history of chronic kidney disease has had nausea and vomiting for the past week while on Macrobid for UTI. Kidney function is slightly worse than baseline, probably because he has not been able to eat or drink very much this past week. Stable potassium, No leukocytosis, anemia improved UA has blood(to be expected), but no other indicators of active infection. He said he felt much better after having a meal and an IV fluid bolus He can continue taking Zofran as needed to help with nausea, and make sure to drink plenty of fluids Follow-up with PCP and urologist within the next week. Discontinue Macrobid as it is causing a lot of GI side effects. Medical Records: Attestation: I reviewed the patient's medical records. Lab Data: Attestation: I reviewed the patient's lab results. Labs: Lab Results 03/25/21 03/25/21 03/25/21 19:40 19:40 21:10 WBC 5.3 10^3/uL 10^3/ uL (4.0-10.0) RBC 4.51 10^6/uL 10^6 /uL (4.1-5.3) Hgb 12.5 g/dL g/dL (11.7-16.6) Hct 39.3 % L % (42.0-52.0) MCV 87.1 fl fl (80-94) MCH 27.7 pg L pg (28.0-34.0) MCHC 31.8 g/dL g/dL (30.0-36.0) RDW 13.3 % % (12.1-15.1) Plt Count 211 10^3/cmm 10^3 /cmm (130-400) MPV 9.7 fL fL (7.4-10.4) Neut % (Auto) 86.4 % % Lymph % (Auto) 3.2 % % Riley % (Auto) 8.1 % % Eos % (Auto) 1.9 % % Baso % (Auto) 0.0 % % Neut # (Auto) 4.61 10^3/uL 10^3 /uL (1.8-7.7) Lymph # (Auto) 0.2 10^3/uL L 10^ 3/uL (0.8-4.8) Riley # (Auto) 0.4 10^3/uL 10^3/ uL (0.2-0.9) Eos # (Auto) 0.1 10^3/uL 10^3/ uL (0.0-0.8) Baso # (Auto) 0.0 10^3/uL 10^3/ uL (0.0-0.1) Nucleated RBC % (a uto) 0 % % Nucleated RBCs # 0.0 /100WBC /100W BC Sodium 136 mmol/L mmol/L (136-145) Potassium 4.5 mmol/L mmol/L (3.5-5.1) Chloride 106 mmol/L mmol/L (98-107) Carbon Dioxide 18 mmol/L L mmol/ L (22-29) Anion Gap 16.5 (5-19) BUN 51 mg/dL H mg/dL (8-23) Creatinine 4.4 mg/dL H mg/dL (0.7-1.2) GFR Calculation 13.6 mL/min L mL/ min (90-130) Glucose 113 mg/dL mg/dL (65-115) Calculated Osmolal ity 296 mOsm/kg H mOs m/kg (285-295) Calcium 7.9 mg/dL L mg/dL (8.5-10.5) Total Bilirubin 0.2 mg/dL mg/dL (0.15-1.2) AST 14 U/L U/L (0-40) ALT 17 U/L U/L (0-41) Alkaline Phosphata se 76 IU/L IU/L (40-130) Total Protein 7.4 g/dL g/dL (6.6-8.7) Albumin 3.8 g/dL g/dL (3.5-5.2) Globulin 3.6 g/dL g/dL (1.3-4.6) Lipase 58 U/L U/L (13-60) Urine Color Yellow (Yellow) Urine Appearance Clear (CLEAR) Urine pH 5 (5-7) Ur Specific Gravit y 1.020 (1.005-1.030) Urine Protein Neg (Negative) Urine Glucose (UA) Norm (Normal) Urine Ketones Negative (Negative) Urine Blood 2+ H (Negative) Urine Nitrate Negative (Negative) Urine Bilirubin Neg (Negative) Urine Urobilinogen Neg mg/dL mg/dL (Negative) Ur Leukocyte Sheridan ase Trace H (Negative) Urine RBC 10-15 /hpf H /hpf (0-2) Urine WBC 10-15 /hpf H /hpf (0-5) Ur Squamous Epith Cells Rare /hpf /hpf (0-5) Amorphous Sediment Not Reportable Urine Bacteria None /hpf /hpf (NONE) EKG Data^: EKG 1: Attestation: I personally reviewed and interpreted this EKG as follows: EKG interpretation date: 03/25/21 EKG interpretation time: 20:19 Prior EKG tracings: available for review Interpretation: Sinus rhythm with a rate of 67, IA 164, QRS 102, QTc 386, normal axis, no ST segment elevation or depression. Discharge Plan Discharge Patient Disposition: Home Clinical Impression: Chronic kidney disease (CKD) Qualifiers: Chronic kidney disease stage: stage 5, not on chronic dialysis Qualified Code(s): N18.5 - Chronic kidney disease, stage 5 Nausea and/or vomiting Qualifiers: Vomiting type: unspecified Qualified Code(s): R11.2 - Nausea with vomiting, unspecified Condition: Stable Prescriptions: New ondansetron 4 mg tablet,disintegrating 4 mg PO Q8H PRN (Reason: nausea and vomiting) 5 Days Qty: 30 RF: 0 No Action magnesium oxide 240 mg magnesium powder in packet PO BID RF: 0 tamsulosin 0.4 mg capsule 0.4 mg PO QDAY Qty: 180 RF: 3 Discharge Orders: Discharge ED (Routine); Ordered 03/25/21 Ordered By: Marlene Balderas Referrals: Estrella Matos [Primary Care Provider] - Discharge Diet: Advance as tolerated Discharge Activity: Resume usual activity Patient Instructions: Chronic Kidney Disease Diet (DC) Activity Restrictions/Additional Instructions: Drink extra water. Call to schedule follow-up with your primary care doctor and kidney doctor as soon as possible. Make sure to take the tamsulosin every day. Return immediately to the ER if you develop a fever, worsening pain, or if you cannot keep down liquids. Coding Level of Care Code ED Injection Molder for Choco Tomlinson
[2021-03-25 19:48] LABS: Eosinophils # 0.1 10^3/uL (0.0-0.8); Eosinophils % 1.9 %; Hematocrit 39.3 % (42.0-52.0); Hemoglobin 12.5 g/dL (11.7-16.6); Lymphocytes # 0.2 10^3/uL (0.8-4.8); Lymphocytes % 3.2 %; Mean Corpuscular HGB Conc 31.8 g/dL (30.0-36.0); Mean Corpuscular Hemoglobin 27.7 pg (28.0-34.0); Mean Corpuscular Volume 87.1 fl (80-94); Mean Platelet Volume 9.7 fL (7.4-10.4); Monocytes # 0.4 10^3/uL (0.2-0.9); Monocytes % 8.1 %; Neutrophils # 4.61 10^3/uL (1.8-7.7); Neutrophils % 86.4 %; Nucleated Red Blood Cells % 0 %; Platelet Count 211 10^3/cmm (130-400); Red Blood Count 4.51 10^6/uL (4.1-5.3); Red Cell Distribution Width 13.3 % (12.1-15.1); White Blood Count 5.3 10^3/uL (4.0-10.0)
--- NOTE | 2021-03-25 19:55 | ECG_ITS ---
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 Measurements Intervals [place] Rate: 67 P: 78 CT: 164 QRS: 98 QRSD: 102 T: 75 QT: 370 QTc: 392 Interpretive Statements SINUS RHYTHM BORDERLINE RIGHT AXIS DEVIATION [QRS AXIS > 90] Compared to ECG 06/13/2020 18:04:03 Sinus bradycardia no longer present Intraventricular conduction delay no longer present Electronically Signed On 03-26-2021 0:06:52 GEOTHERMAL PRODUCTION MANAGER by Ruth Mcleod M.D. [id number]
[2021-03-25 20:04] LABS: Alanine Aminotransferase 17 U/L (0-41); Albumin Level 3.8 g/dL (3.5-5.2); Alkaline Phosphatase 76 IU/L (40-130); Anion Gap 16.5 (5-19); Aspartate Amino Transferase 14 U/L (0-40); Blood Urea Nitrogen 51 mg/dL (8-23); Calcium 7.9 mg/dL (8.5-10.5); Carbon Dioxide 18 mmol/L (22-29); Chloride 106 mmol/L (98-107); Globulin 3.6 g/dL (1.3-4.6); Glomerular Filtration Rate 13.6 mL/min (90-130); Glucose 113 mg/dL (65-115); Lipase 58 U/L (13-60); Osmolality Calculated 296 mOsm/kg (285-295); Potassium 4.5 mmol/L (3.5-5.1); Sodium 136 mmol/L (136-145); Total Bilirubin 0.2 mg/dL (0.15-1.2); Total Protein 7.4 g/dL (6.6-8.7)
[2021-03-25] MEDS: ondansetron 2 mg/ML SDV 2 mL 4 MG IVP (20:29)
[2021-03-25] MEDS: famotidine 20 mg/2 mL INJ 40 MG IVP (20:29)
[2021-03-25] MEDS: sodium chloride 0.9% 1,000 ML 999 ML IV (20:30)
[2021-03-25 21:32] LABS: Add Urine Microscopic? YES; Bilirubin Urine Neg (Negative); Blood Urine 2+ (Negative); Glucose Urine UA Norm (Normal); Ketones Urine Negative (Negative); Leukocyte Esterase Urine Trace (Negative); Nitrate Urine Negative (Negative); Protein Urine Neg (Negative); Urine Appearance Clear (CLEAR); Urine Color Yellow (Yellow); Urobilinogen Urine Neg (Negative); pH Urine 5 (5-7)
[2021-03-25 21:33] LABS: Add Urine Culture? Yes; Squamous Epithelial Cell Urine RARE /hpf (0-5)
[2021-03-25 22:17] VITALS: BP 108/55; PULSE 64; RESP 18; O2SAT 97
--- NOTE | 2021-03-25 22:18 | PC.NURSE ---
patient given sandwich tray . patient with no noted nausea/vomiting post tray .
[2021-03-25 23:17] VITALS: BP 110/67; PULSE 71; RESP 16; TEMP 36.7; O2SAT 97
[2021-03-25 23:18] VITALS: BP 110/67; PULSE 71; RESP 16; TEMP 36.7; O2SAT 97
== END 2021-03-25 23:20 | disposition home or self-care (01) ==
PROVIDERS: Emergency Medicine; Emergency Provider Family Medicine; PCP Nurse Practitioner Family
DX: R11.2 Nausea with vomiting, unspecified (principal); N18.5 Chronic kidney disease, stage 5; Z77.22 Contact with and (suspected) exposure to environmental tobacco smoke (acute) (chronic)
CPT/HCPCS: 80053; 81001; 83690; 85025; 87086; 93005; 96361; 96374; 96375; 99283; J2405; J3490; J7030

== ENCOUNTER 2021-05-19 12:57 | Outpatient (CLI) | payer MEDICAID, SELFPAY ==
--- NOTE | 2021-05-19 13:07 | XR_ITS ---
WS: [id number] Exam: XR KUB [id number] Date/Time of Exam: 05/19/2021 1:26 PM Reason For Exam: urolithiasis No sign of bowel obstruction or free air. Multiple calcifications superimpose right renal silhouette and may represent multiple stones. No sign of organ enlargement. Multiple nonspecific bilateral pelvi c calcifications. Bony structures are intact. XR/XR KUB [id number] IMPRESSION: 1. No acute abdominal finding. 2. Multiple calcifications superimpose the right kidney and may represent multi ple renal stones.
--- NOTE | 2021-05-19 13:32 | US_ITS ---
WS: [id number] RENAL ULTRASOUND HISTORY: CALCULUS OF OTHER LOWER URINARY TRACT LOCATION COMPARISON: 06/13/2020 TECHNIQUE: 2-D and color Doppler imaging of the kidney submitted. Right kidney: 11.4 cm x 4.6 cm x 6.1 cm. Kidney is mildly enlarged. Severe hydronephrosis. Marked dilatation of the calyces and the renal pelv is and ureter. Diffuse cortical thinning and increased echogenicity. No solid mass identified. Left kidney: 13.6 cm x 5.0 cm x 6.0 cm. Enlarged kidney with severe hydronephrosis. Cortical thinning and increased echogenicity throughout t he normal visualized parenchyma. Aorta: Normal. Urinary Bladder: Urinary bladder is distended with bladder wall thickening and marked trabecular thic kening. Prostate gland is enlarged. There is fluid along the prosthetic urethra and a calcification w ithin the prostate gland. There are several calcifications within the prostate gland. Prostate gland is lobulated and measures at least 5.3 x 5.5 x 5.2 cm. US/US renal BI* [id number] IMPRESSION: 1. Severe bilateral hydronephrosis, similar to prior study. 2. Markedly enlarged heterogeneous prostate gland with central calcifications. There is a calcification in the expected location of the prostatic urethra.
== END 2021-05-19 12:58 | disposition home or self-care (01) ==
LOC: RAD 13:02
PROVIDERS: PCP Nurse Practitioner Family; Visit Provider Urology
DX: N20.9 Urinary calculus, unspecified (principal); N21.8 Other lower urinary tract calculus; N13.30 Unspecified hydronephrosis; N40.0 Benign prostatic hyperplasia without lower urinary tract symptoms
CPT/HCPCS: 74018; 76770; 81003; G0103

== ENCOUNTER 2021-09-01 12:44 | Outpatient (CLI) | payer MEDICARE, MEDICAID, SELFPAY | END 2021-09-01 12:45 | disposition home or self-care (01) | PROVIDERS: PCP Nurse Practitioner Family; Visit Provider Urology | DX: R33.9 Retention of urine, unspecified (principal); R97.20 Elevated prostate specific antigen [PSA] | CPT/HCPCS: 36415; 81003; 84153; 99213 ==

== ENCOUNTER 2022-03-03 14:01 | Outpatient (CLI) | payer MEDICARE, MEDICAID, SELFPAY ==
[2022-03-03 15:55] LABS: Prostate Specific AG Urology 10.83 ng/mL (0-4)
== END 2022-03-03 14:02 | disposition home or self-care (01) ==
LOC: LAB 14:06
PROVIDERS: PCP Nurse Practitioner Family; Visit Provider Urology
DX: R97.20 Elevated prostate specific antigen [PSA] (principal); N40.0 Benign prostatic hyperplasia without lower urinary tract symptoms; R33.9 Retention of urine, unspecified; N18.4 Chronic kidney disease, stage 4 (severe)
CPT/HCPCS: 81003; 84153; 99214